=== PATIENT | male | born 1945 | race Caucasian/White ===

== ENCOUNTER 2016-10-26 19:07 | Emergency (ER) | payer MEDICARE, OTHER ==
[2016-10-26 19:17] VITALS: BP 125/79; PULSE 79; RESP 18; TEMP 98.7
--- NOTE | 2016-10-26 19:29 | ED ---
General Adult HPI - General Chief complaint: Extremity Injury, Upper Stated complaint: elbow injury Time Seen by Provider: 10/26/16 19:21 Source: patient, RN notes reviewed Mode of arrival: ambulatory Limitations: no limitations - History of Present Illness Initial comments: Patient is a 70-year-old male who presents emergency room today with chief complaint of injury to the right elbow that occurred approximately one hour ago. He does admit that he was riding in the back of a golf cart when a history of small bump in began to tip over he fell off landing on the right elbow causing hematoma. He does admit that he does have a large amount of swelling in this area. Does admit that he is on a blood thinner but denies any head injury or loss conscious. He denies any other complaints or associated symptoms. States she has full range of motion. Does admit some mild tenderness to the back of the right. Patient denies any recent fever, chills, shortness of breath, chest pain, back pain, abdominal pain, nausea or vomiting, numbness or tingling, dysuria or hematuria, constipation or diarrhea, headaches or visual changes, or any other complaints. - Related Data Home Medications Medication Instructions Recorded Confirmed Terbinafine HCl [LamISIL] 1 tab PO DAILY 10/26/16 10/26/16 Previous Rx's Medication Instructions Recorded Aspirin EC [Ecotrin Low Dose] 81 mg PO DAILY #30 tablet. 12/24/15 Atorvastatin Calcium [Lipitor] 40 mg PO HS #30 tab 12/24/15 Clopidogrel [Plavix] 75 mg PO DAILY #30 tab 12/24/15 Metoprolol Tartrate [Lopressor] 12.5 mg PO DAILY #60 tab 12/24/15 Nitroglycerin Sl Tabs [Nitrostat] 0.4 mg SUBLINGUAL Q5M PRN #25 tab 12/30/15 Allergies Allergy/AdvReac Type Severity Reaction Status Date / Time shellfish derived Allergy Anaphylaxis Verified 10/26/16 19:17 Review of Systems ROS Statement: Those systems with pertinent positive or pertinent negative responses have been documented in the HPI. ROS Other: All systems not noted in ROS Statement are negative. Past Medical History Past Medical History: Coronary Artery Disease (CAD), Myocardial Infarction ([place]) Additional Past Medical History / Comment(s): Couple days ago, blood pressure was elevated while at his family doctor's office, cervical pinched nerve with cervical pain that travels into bilateral arms at times, R ankle badly fractured and still has problems with it, sinus infections in past. History of Any Multi-Drug Resistant Organisms: None Reported Past Surgical History: Heart Catheterization With Stent Past Anesthesia/Blood Transfusion Reactions: Unable to Obtain Additional Past Anesthesia/Blood Transfusion Reaction / Comment(s): Pt has never had anesthesia or received blood. Past Psychological History: No Psychological Hx Reported Smoking Status: Former smoker Past Alcohol Use History: Occasional Past Drug Use History: None Reported - Past Family History Mother Family Medical History: No Reported History Additional Family Medical History / Comment(s): Mother is 93 yrs old and healthy. She lives alone and drives a car. Father History Unknown: Yes General Exam - General Exam Comments Initial Comments: General: The patient is awake and alert, in no distress, and does not appear acutely ill. Eye: Pupils are equal, round and reactive to light, extra-ocular movements are intact. No nystagmus. There is normal conjunctiva bilaterally. No signs of icterus. Ears, nose, mouth and throat: There are moist mucous membranes and no oral lesions. Neck: The neck is supple, there is no tenderness or JVD. Cardiovascular: There is a regular rate and rhythm. No murmur, rub or gallop is appreciated. Respiratory: Lungs are clear to auscultation, respirations are non-labored, breath sounds are equal. No wheezes, stridor, rales, or rhonchi. Musculoskeletal: She does have large hematoma to the back of the right elbow. Locally tender in this area. Shows full range of motion both flexion and extension. No tenderness to right shoulder, right wrist or hand. Sensations intact pulses equal bilaterally 2+. Neurological: A&O x 3. CN II-XII intact, There are no obvious motor or sensory deficits. Coordination appears grossly intact. Speech is normal. Skin: Skin is warm and dry and no rashes or lesions are noted. Psychiatric: Cooperative, appropriate mood & affect, normal judgment. Limitations: no limitations Course Vital Signs 10/26/16 19:15 Temperature 98.7 F Pulse Rate 79 Respiratory 18 Rate Blood Pressure 125/79 O2 Sat by Pulse 97 Oximetry Medical Decision Making - Medical Decision Making Patient's x-ray reviewed and shows no acute fracture dislocation. Results were discussed with the patient. Patient will be discharged home. Advised continue to ice elevate. Given Ti wrap to use for compression. Disposition Clinical Impression: Hematoma Disposition: HOME SELF-CARE Condition: Good Instructions: Hematoma (ED) Additional Instructions: Please continue to ice elevate the affected area at least 4 times a day for 20 minutes at a time. Please use Ti wrap for compression as discussed. Please follow-up with family doctor if symptoms persist or return here to the emergency room for any other concerns. Referrals: Dillan Mcmullen MD [Primary Care Provider] - 1-2 days Time of Disposition: 19:51
--- NOTE | 2016-10-26 19:45 | XR ---
EXAMINATION TYPE: XR elbow limited RT DATE OF EXAM: 10/26/2016 CLINICAL HISTORY: Posterior pain after fall injury today TECHNIQUE: 2 views of the right elbow are obtained. COMPARISON: None FINDINGS: There is no acute fracture/dislocation evident in the right elbow. No abnormal fat pad si gns are seen. There is prominent spur from the olecranon at distal triceps tendon attachment. Promin ent spurring from the medial epicondyle of the distal humerus is seen. The overlying soft tissue appe ars unremarkable. IMPRESSION: There is no acute fracture or dislocation in the right elbow.
== END 2016-10-26 19:57 | disposition home or self-care (01) ==
LOC: EC 19:07
DX: S50.01XA Contusion of right elbow, initial encounter (principal); Z87.891 Personal history of nicotine dependence; Z79.899 Other long term (current) drug therapy; Z91.013 Allergy to seafood; W17.89XA Other fall from one level to another, initial encounter; Y93.89 Activity, other specified
CPT/HCPCS: 99283

== ENCOUNTER → 2016-11-05 | Outpatient (CLI) | payer MEDICARE, OTHER ==
--- NOTE | 2016-11-05 11:31 | XR ---
EXAMINATION TYPE: XR elbow complete RT DATE OF EXAM: 11/05/2016 COMPARISON: 10/26/2016 HISTORY: 71-year-old male with elbow pain after fall TECHNIQUE: 3 views FINDINGS: No elbow joint effusion seen. There is diffuse soft tissue swelling with a large spur at the olecrano n. There is bony irregularity at the medial epicondyles stable from prior. Lesser degree of bony irre gularity at the lateral epicondyle. No acute fracture or dislocation seen. IMPRESSION: 1. Diffuse soft tissue swelling. Clinically correlate. 2. Findings suggest chronic tendinopathy of both common flexor and extensor tendon origins, possible epicondylitis. Correlate for any chronic pain. 3. No acute osseous abnormality seen. No appreciable elbow joint effusion.
--- NOTE | 2016-11-05 11:33 | US ---
EXAMINATION TYPE: US venous doppler duplex UE RT DATE OF EXAM: 11/05/2016 COMPARISON: NONE CLINICAL HISTORY: 71-year-old male R22.31 SWELLING RT ARM. TECHNIQUE: Grayscale, color doppler, spectral doppler imaging performed of the deep veins of the righ t upper extremity. Findings: Right Arm: Negative for DVT. There is normal flow, compressibility and vascular waveforms in the IJV , subclavian, axillary, brachial, cephalic, basilic, and paired radial and ulnar veins. IMPRESSION: No evidence for DVT within the right upper extremity.
== END ==
LOC: RADUSWWP 09:47
PROVIDERS: ATTEND Internal Medicine
DX: R22.31 Localized swelling, mass and lump, right upper limb (principal); M79.89 Other specified soft tissue disorders

== ENCOUNTER → 2018-12-08 | Outpatient (CLI) | payer MEDICARE ==
--- NOTE | 2018-12-08 09:40 | US ---
EXAMINATION TYPE: US liver DATE OF EXAM: 12/08/2018 COMPARISON: US gallbladder dated 12/22/2015 CLINICAL HISTORY: R74.8 Elevated Liver enzymes. EXAM MEASUREMENTS: Liver Length: 12.3 cm Gallbladder Wall: 0.2 cm CBD: 0.4 cm Right Kidney: 12.3 x 4.7 x 5.3 cm Pancreas: partially obscured by bowel gas, portions visualized wnl Liver: There is increased echogenicity of the hepatic parenchyma with diminished visualization of th e portal triads most commonly relating to hepatic steatosis and limiting evaluation for underlying he patic masses. Gallbladder: wnl Evidence for sonographic Cabrera's sign: no CBD: wnl Right Kidney: wnl, scattered echogenic foci could represent small stones or vascular calcifications IMPRESSION: 1. Sonographic findings most commonly related to hepatic steatosis. Correlate with liver function marlyn t results. 2. No sonographic sequela is no acute cholecystitis. 3. Partial obscuration of the pancreas by overlying bowel gas.
[2018-12-08 10:19] LABS: HCT 37.6 % (39.0-53.0); HGB 12.4 gm/dL (13.0-17.5); MCH 32.5 pg (25.0-35.0); MCV 98.6 fL (80.0-100.0); Mean Platelet Volume 6.6; Platelet Count 288 k/uL (150-450); RBC 3.82 m/uL (4.30-5.90); RDW 14.4 % (11.5-15.5); WBC 6.2 k/uL (3.8-10.6)
[2018-12-08 10:29] LABS: Albumin 3.7 g/dL (3.5-5.0); Bilirubin, Delta 0.2 mg/dL (0.0-0.2); Bilirubin,Unconjugated 0.4 mg/dL (0.0-1.1); INR 0.9 (<1.2); Prothrombin Time 10.2 sec (9.0-12.0); Total Bilirubin 0.6 mg/dL (0.2-1.3); Total Protein 6.7 g/dL (6.3-8.2)
[2018-12-09 10:29] LABS: Albumin 3.28 g/dL (3.80-4.90); Gamma Globulin 0.92 g/dL (0.70-1.50)
== END | disposition home or self-care (01) ==
LOC: RADUSWWP 08:47
PROVIDERS: ATTEND Physician Assistant
DX: R74.8 Abnormal levels of other serum enzymes (principal)
CPT/HCPCS: 36415; 76705; 80074; 80076; 82103; 82728; 83516; 83540; 83550; 84165; 85027; 85610; 86038

== ENCOUNTER → 2019-03-29 | Outpatient (CLI) | payer MEDICARE ==
[2019-03-29 17:24] LABS: African American GFR (CKD) 57.8 (60.0-200.0); Albumin 3.8 g/dL (3.80-4.90); Albumin/Globulin Ratio 1.81 (1.60-3.17); Anion Gap 6.9 mmol/L (4.00-12.00); BUN/Creat Ratio 17.14 Ratio (12.00-20.00); Calcium 9.2 mg/dL (8.7-10.3); Carbon Dioxide 27.1 mmol/L (21.6-31.8); Chol/HDL Ratio 3.13; Globulin 2.1 g/dL (1.6-3.3); LDL Cholesterol,Calculated 76.2 mg/dL (0.0-131.0); Non-African American GFR(CKD) 49.8 (60.0-200.0); Potassium 3.9 mmol/L (3.5-5.5); Total Bilirubin 0.4 mg/dL (0.3-1.2); Total Protein 5.9 g/dL (6.2-8.2); VLDL Calculation 23.8 mg/dL (5.00-40.00)
== END | disposition home or self-care (01) ==
LOC: LABWHC1 09:22
PROVIDERS: ATTEND Nurse Practitioner Adult Health
DX: I10 Essential (primary) hypertension (principal); E78.2 Mixed hyperlipidemia; R60.0 Localized edema
CPT/HCPCS: 36415; 80053; 80061

== ENCOUNTER → 2019-10-05 | Outpatient (CLI) | payer MEDICARE ==
[2019-10-05 17:03] LABS: African American GFR (CKD) 53.1 (60.0-200.0); Albumin 3.8 g/dL (3.80-4.90); Albumin/Globulin Ratio 1.73 (1.60-3.17); Anion Gap 7.6 mmol/L (4.00-12.00); BUN/Creat Ratio 19.33 Ratio (12.00-20.00); Calcium 8.5 mg/dL (8.7-10.3); Carbon Dioxide 24.4 mmol/L (21.6-31.8); Chol/HDL Ratio 3.57; Globulin 2.2 g/dL (1.6-3.3); LDL Cholesterol,Calculated 60.8 mg/dL (0.0-131.0); Non-African American GFR(CKD) 45.9 (60.0-200.0); Potassium 3.9 mmol/L (3.5-5.5); Total Bilirubin 0.5 mg/dL (0.3-1.2); VLDL Calculation 47.2 mg/dL (5.00-40.00)
== END | disposition home or self-care (01) ==
LOC: LABWHC1 08:23
PROVIDERS: ATTEND Nurse Practitioner Adult Health
DX: E78.2 Mixed hyperlipidemia (principal); I10 Essential (primary) hypertension
CPT/HCPCS: 36415; 80053; 80061

== ENCOUNTER 2019-11-07 18:29 | Observation (INO) | payer MEDICARE ==
[2019-11-07] MEDS ORDERED: SODIUM CHLORIDE 0.9% 500 ML 500 ML IV STA (19:00)
--- NOTE | 2019-11-07 19:18 | CT ---
EXAMINATION TYPE: CT brain lorena wo con DATE OF EXAM: 11/07/2019 COMPARISON: None HISTORY: Syncope and fall. CT DLP: 1380.9 mGycm Automated exposure control for dose reduction was used. Ventricles have normal size. There is no mass effect nor midline shift. There is no sign of intracran ial hemorrhage. Calvarium is intact. There is mild cerebral atrophy. Cervical vertebra have normal alignment. Disc spaces are fairly normal. There is calcification of the posterior longitudinal ligament at C4. Facet joints are intact. The skull base is intact. There is n ormal aeration of the temporal bones. IMPRESSION: Cerebral atrophy. No acute intracranial abnormality. Mild spondylotic changes in the cervical spine. No fracture.
--- NOTE | 2019-11-07 19:19 | ED ---
General Adult HPI - General Chief complaint: Fall Stated complaint: Fall Time Seen by Provider: 11/07/19 18:31 Source: patient, EMS, RN notes reviewed, old records reviewed Mode of arrival: EMS - History of Present Illness Initial comments: 74-year-old male presenting with syncopal episode. Patient was growing in the heat, he does admit to having one alcoholic beverage. He felt lightheaded, fell onto his backside. He does not think he had head trauma but he is complaining of some neck pain and low back pain. He has chronic low back pain at baseline. He denies any chest pain or palpitation. Denies vomiting or diarrhea. Denies fever. His only complaint at this point is low back pain. - Related Data Home Medications Medication Instructions Recorded Confirmed Terbinafine HCl [LamISIL] 1 tab PO DAILY 10/26/16 10/26/16 Previous Rx's Medication Instructions Recorded Aspirin EC [Ecotrin Low Dose] 81 mg PO DAILY #30 tablet. 12/24/15 Atorvastatin Calcium [Lipitor] 40 mg PO HS #30 tab 12/24/15 Clopidogrel [Plavix] 75 mg PO DAILY #30 tab 12/24/15 Metoprolol Tartrate [Lopressor] 12.5 mg PO DAILY #60 tab 12/24/15 Nitroglycerin Sl Tabs [Nitrostat] 0.4 mg SUBLINGUAL Q5M PRN #25 tab 12/30/15 Allergies Allergy/AdvReac Type Severity Reaction Status Date / Time shellfish derived Allergy Anaphylaxis Verified 11/07/19 18:41 Review of Systems ROS Statement: Those systems with pertinent positive or pertinent negative responses have been documented in the HPI. ROS Other: All systems not noted in ROS Statement are negative. Past Medical History Past Medical History: Coronary Artery Disease (CAD), Myocardial Infarction ([place]) Additional Past Medical History / Comment(s): Couple days ago, blood pressure was elevated while at his family doctor's office, cervical pinched nerve with cervical pain that travels into bilateral arms at times, R ankle badly fractured and still has problems with it, sinus infections in past. History of Any Multi-Drug Resistant Organisms: None Reported Past Surgical History: Heart Catheterization With Stent Past Anesthesia/Blood Transfusion Reactions: Unable to Obtain Additional Past Anesthesia/Blood Transfusion Reaction / Comment(s): Pt has never had anesthesia or received blood. Past Psychological History: No Psychological Hx Reported Past Alcohol Use History: Occasional Past Drug Use History: None Reported - Past Family History Mother Family Medical History: No Reported History Additional Family Medical History / Comment(s): Mother is 93 yrs old and healthy. She lives alone and drives a car. Father History Unknown: Yes General Exam General appearance: alert, in no apparent distress Head exam: Present: atraumatic, normocephalic Eye exam: Present: normal appearance, PERRL ENT exam: Present: mucous membranes dry Neck exam: Present: normal inspection. Absent: tenderness, meningismus Respiratory exam: Present: normal lung sounds bilaterally. Absent: respiratory distress, wheezes Cardiovascular Exam: Present: regular rate, normal rhythm GI/Abdominal exam: Present: soft. Absent: distended, tenderness, guarding Extremities exam: Present: normal inspection, normal capillary refill, other (Skin tear, right forearm, superficial, no repairable laceration) Back exam: Present: normal inspection, tenderness (lumbar) Neurological exam: Present: alert, oriented X3, CN II-XII intact. Absent: motor sensory deficit Psychiatric exam: Present: normal affect, normal mood Skin exam: Present: warm, dry. Absent: cyanosis, diaphoretic Course Vital Signs 11/07/19 11/07/19 18:34 20:15 Temperature 97.6 F Pulse Rate 72 97 Respiratory 20 18 Rate Blood Pressure 113/65 99/65 O2 Sat by Pulse 97 99 Oximetry - Reevaluation(s) Reevaluation #1: 11/07/19 19:16 Patient tetanus is up-to-date, he has a right forearm skin tear. EKG Findings - EKG Comments: EKG Findings:: EKG sinus rhythm with first-degree AV block, rate of 75, KS interval 214, QRS duration 78, QTC 417, no ST segment elevation. Medical Decision Making - Medical Decision Making 74-year-old male with syncope, fall. CT performed negative for scleral hemorrhage or mass effect, CT cervical spine negative for fracture or subluxation. Chest x-ray negative for acute Jesus Alberto pulmonary disease. X-ray of the lumbar spine is negative for fracture dislocation. Patient has hemoglobin 12.2, slightly anemic, no active bleeding, no melena or bright red rectal bleeding. Normal white blood cell count. His electrolytes do reveal significant acidosis with a CO2 of 10, he is in acute renal failure with a BUN of 57 and elevated serum creatinine. I suspect his acidosis is a combination of uremia as well as lactic acidosis with a lactic of 5.1 which is suspect is from dehydration rather than sepsis. He has been admitted for IV fluids. Case discussed with Dr. Peralta who will accept admission. - Lab Data Result diagrams: 11/07/19 19:24 11/07/19 19:24 Lab Results 11/07/19 11/07/19 11/07/19 Range/Units 19:24 19:24 19:24 WBC 7.2 (3.8-10.6) k/uL RBC 3.72 L (4.30-5.90) m/uL Hgb 12.2 L (13.0-17.5) gm/dL Hct 37.5 L (39.0-53.0) % MCV 100.8 H (80.0-100.0) fL MCH 32.9 (25.0-35.0) pg MCHC 32.7 (31.0-37.0) g/dL RDW 13.5 (11.5-15.5) % Plt Count 188 (150-450) k/uL Neutrophils % 73 % Lymphocytes % 17 % Monocytes % 5 % Eosinophils % 3 % Basophils % 1 % Neutrophils # 5.2 (1.3-7.7) k/uL Lymphocytes # 1.2 (1.0-4.8) k/uL Monocytes # 0.4 (0-1.0) k/uL Eosinophils # 0.2 (0-0.7) k/uL Basophils # 0.0 (0-0.2) k/uL Macrocytosis Slight PT 10.2 (9.0-12.0) sec INR 1.0 (<1.2) APTT 22.2 (22.0-30.0) sec Sodium 136 L (137-145) mmol/L Potassium 5.1 (3.5-5.1) mmol/L Chloride 115 H (98-107) mmol/L Carbon Dioxide 10 L (22-30) mmol/L Anion Gap 11 mmol/L BUN 57 H (9-20) mg/dL Creatinine 2.48 H (0.66-1.25) mg/dL Est GFR (CKD-EPI)AfAm 29 (>60 ml/min/1.73 sqM) Est GFR (CKD-EPI)NonAf 25 (>60 ml/min/1.73 sqM) Glucose 86 (74-99) mg/dL Plasma Lactic Acid Migue (0.7-2.0) mmol/L Calcium 8.6 (8.4-10.2) mg/dL Magnesium 2.5 H (1.6-2.3) mg/dL Total Bilirubin 0.8 (0.2-1.3) mg/dL AST 39 (17-59) U/L ALT 28 (4-49) U/L Alkaline Phosphatase 52 (38-126) U/L Total Protein 6.8 (6.3-8.2) g/dL Albumin 3.8 (3.5-5.0) g/dL Serum Alcohol 68 mg/dL 11/07/19 Range/Units 20:14 WBC (3.8-10.6) k/uL RBC (4.30-5.90) m/uL Hgb (13.0-17.5) gm/dL Hct (39.0-53.0) % MCV (80.0-100.0) fL MCH (25.0-35.0) pg MCHC (31.0-37.0) g/dL RDW (11.5-15.5) % Plt Count (150-450) k/uL Neutrophils % % Lymphocytes % % Monocytes % % Eosinophils % % Basophils % % Neutrophils # (1.3-7.7) k/uL Lymphocytes # (1.0-4.8) k/uL Monocytes # (0-1.0) k/uL Eosinophils # (0-0.7) k/uL Basophils # (0-0.2) k/uL Macrocytosis PT (9.0-12.0) sec INR (<1.2) APTT (22.0-30.0) sec Sodium (137-145) mmol/L Potassium (3.5-5.1) mmol/L Chloride (98-107) mmol/L Carbon Dioxide (22-30) mmol/L Anion Gap mmol/L BUN (9-20) mg/dL Creatinine (0.66-1.25) mg/dL Est GFR (CKD-EPI)AfAm (>60 ml/min/1.73 sqM) Est GFR (CKD-EPI)NonAf (>60 ml/min/1.73 sqM) Glucose (74-99) mg/dL Plasma Lactic Acid Migue 5.1 H* (0.7-2.0) mmol/L Calcium (8.4-10.2) mg/dL Magnesium (1.6-2.3) mg/dL Total Bilirubin (0.2-1.3) mg/dL AST (17-59) U/L ALT (4-49) U/L Alkaline Phosphatase (38-126) U/L Total Protein (6.3-8.2) g/dL Albumin (3.5-5.0) g/dL Serum Alcohol mg/dL Disposition Clinical Impression: Syncope, Fall, LUZ (acute kidney injury), Lactic acid acidosis, Dehydration Disposition: ADMITTED IP TO THIS [facility] Condition: Stable Is patient prescribed a controlled substance at d/c from ED?: No Referrals: Dillan Mcmullen MD [Primary Care Provider] - 1-2 days Decision to Admit Reason: Admit from EC Decision Date: 11/07/19 Decision Time: 20:48
[2019-11-07] MEDS ORDERED: MORPHINE SULFATE 4 MG/ML SYRINGE IVP STA (19:27)
[2019-11-07 19:34] LABS: Basophils % (A) 1 %; Eosinophils # (A) 0.2 k/uL (0-0.7); Eosinophils % (A) 3 %; HCT 37.5 % (39.0-53.0); HGB 12.2 gm/dL (13.0-17.5); Lymphocytes # (A) 1.2 k/uL (1.0-4.8); Lymphocytes % (A) 17 %; MCH 32.9 pg (25.0-35.0); MCHC 32.7 g/dL (31.0-37.0); MCV 100.8 fL (80.0-100.0); Macrocytosis Slight; Mean Platelet Volume 7.4; Monocytes # (A) 0.4 k/uL (0-1.0); Monocytes % (A) 5 %; Neutrophils # (A) 5.2 k/uL (1.3-7.7); Neutrophils % (A) 73 %; Platelet Count 188 k/uL (150-450); RBC 3.72 m/uL (4.30-5.90); RDW 13.5 % (11.5-15.5); WBC 7.2 k/uL (3.8-10.6)
[2019-11-07 19:42] LABS: Albumin 3.8 g/dL (3.5-5.0); Calcium 8.6 mg/dL (8.4-10.2); Magnesium 2.5 mg/dL (1.6-2.3); Total Bilirubin 0.8 mg/dL (0.2-1.3); Total Protein 6.8 g/dL (6.3-8.2)
[2019-11-07 19:50] LABS: Potassium 5.1 mmol/L (3.5-5.1)
[2019-11-07 19:52] LABS: Partial Thromboplastin Time 22.2 sec (22.0-30.0); Prothrombin Time 10.2 sec (9.0-12.0)
[2019-11-07] MEDS ORDERED: SODIUM CHLORIDE 0.9% 500 ML 500 ML IV ONE ×2 (20:04→20:39)
--- NOTE | 2019-11-07 20:41 | XR ---
EXAMINATION TYPE: XR chest 2V DATE OF EXAM: 11/07/2019 COMPARISON: 12/28/2015 HISTORY: Syncope TECHNIQUE: FINDINGS: Heart and mediastinum are normal. Lungs are clear. Diaphragm is normal. Bony thorax appears normal. IMPRESSION: Normal chest. No change.
[2019-11-07] MEDS ORDERED: ACETAMINOPHEN TAB 325 MG TAB PO PRN (20:46)
[2019-11-07] MEDS ORDERED: NALOXONE 0.4 MG/ML 1 ML VIAL IV PRN (20:46)
--- NOTE | 2019-11-07 20:57 | XR ---
EXAMINATION TYPE: XR lumbar spine 2 or 3V DATE OF EXAM: 11/07/2019 COMPARISON: 04/11/2014 HISTORY: Fall. Back pain TECHNIQUE: 3 views FINDINGS: Lumbar vertebra have fairly normal alignment. There is anterior spurring in the upper and l ower lumbar spine. Abdominal aorta is atheromatous. Posterior elements are intact. There is significa nt sclerotic hypertrophic facet arthropathy in the lower lumbar spine at L4-5 and L5-S1. Sacroiliac j oints are intact. IMPRESSION: Mild spondylotic changes. No fracture seen. No change compared to old exam.
[2019-11-07] MEDS: SODIUM CHLORIDE 0.9% 1,000 ML IV SCH (22:52)
[2019-11-07] MEDS ORDERED: KETOROLAC 30 MG/ML 1 ML VIAL IVP STA (22:53)
--- NOTE | 2019-11-07 23:19 | P.HPIM ---
History of Present Illness H&P Date: 11/07/19 Chief Complaint: syncope 74 year old male with heart disease, hypertension patient comes in after sustaining a fall due to syncope, he denies any head injury , he was grilling outside in the heat for long time, and has been active over the past few days where he did a lot of work around his house however, he claims that he drinks a lot of water and keeps hydrating. suddenly while grilling he felt himself falling and hit the ground with his back, he is not sure if he passed out. he denies any head injury , denies any associated SOB, chest pain , palpitations, dizziness, or light headedness, denies any nausea or vomiting. patient reports , that he had fallen in his chair couple times when he tried to stand up suddenly in the past. no recent changes in his medi cations. he denies any bleeding. he admits to daily cocktail of alcohol, and that he was having an alcoholic drink today that he did not even finish,. he feels fine right now, except for excruciating back pain . non radiating, 10/10 in seveerity , severe dull pain in his lower back. imaging in the ED did not show any acute pathology. blood work did reveal anemia, LUZ, acidosis , lactic acidosis Review of Systems Pertinent positives as noted in HPI. All other systems were reviewed and are negative Past Medical History Past Medical History: Coronary Artery Disease (CAD), Myocardial Infarction ([place]) History of Any Multi-Drug Resistant Organisms: None Reported Past Surgical History: Heart Catheterization With Stent Past Anesthesia/Blood Transfusion Reactions: Unable to Obtain Additional Past Anesthesia/Blood Transfusion Reaction / Comment(s): Pt has never had anesthesia or received blood. Past Psychological History: No Psychological Hx Reported Past Alcohol Use History: Occasional Past Drug Use History: None Reported - Past Family History Mother Family Medical History: No Reported History Additional Family Medical History / Comment(s): Mother is 93 yrs old and healthy. She lives alone and drives a car. Father History Unknown: Yes Medications and Allergies Home Medications Medication Instructions Recorded Confirmed Type Aspirin EC [Ecotrin Low Dose] 81 mg PO DAILY #30 tablet. 12/24/15 11/07/19 Rx Atorvastatin [Lipitor] 20 mg PO DAILY 11/07/19 11/07/19 History Losartan Potassium [Cozaar] 50 mg PO DAILY 11/07/19 11/07/19 History Metoprolol Tartrate [Lopressor] 12.5 mg PO BID 11/07/19 11/07/19 History Spironolactone [Aldactone] 25 mg PO DAILY 11/07/19 11/07/19 History hydrALAZINE HCL [Apresoline] 50 mg PO BID-W/MEALS 11/07/19 11/07/19 History lisinopriL [Zestril] 11/07/19 History Allergies Allergy/AdvReac Type Severity Reaction Status Date / Time shellfish derived Allergy Anaphylaxis Verified 11/07/19 21:06 Physical Exam Vitals: Vital Signs Temp Pulse Resp BP Pulse Ox 11/07/19 21:00 80 18 119/74 98 11/07/19 20:30 99/65 11/07/19 20:15 97 18 99/65 99 11/07/19 20:00 77 16 125/77 99 11/07/19 19:30 100/67 99 11/07/19 19:00 113/65 11/07/19 18:37 88 18 96 11/07/19 18:34 97.6 F 72 20 113/65 97 Intake and Output 11/07/19 11/07/19 11/07/19 06:59 14:59 22:59 Other: Weight 106.141 kg Constitutional: No acute distress, conversant, pleasant Eyes: Anicteric sclerae, moist conjunctiva, Pupils equal round reactive to light ENMT: NC/AT Oropharynx clear, no erythema, or exudates Neck: Supple, FROM, no masses, or JVD No carotid bruits No thyromegaly Lungs: Clear to auscultation Clear to percussion Normal respiratory effort, no accessory muscle use Cardiovascular: Heart regular in rate and rhythm, No murmurs, gallops, or rubs No peripheral edema Abdominal: Soft Nontender, no guarding, rebound or rigidity Abdomen moving with respiration Normoactive bowel sounds No hepatomegaly, No splenomegaly No palpable mass No abdominal wall hernia noted Skin: Normal temperature, tone, texture, turgor No induration No subcutaneous nodules No rash, lesions No ulcers Extremities: Lumbar Paraspinal muscle spasm No point tenderness over the back no skin changes no swelling No digital cyanosis No clubbing Pedal pulses intact and symmetrical Radial pulses intact and symmetrical No calf tenderness Psychiatric: Alert and oriented to person, place and time Appropriate affect fair judgement Neuro Muscles Strength 5/5 in all 4 extremities Sensation to light touch grossly present throughout Cranial nerves II-XII grossly intact No focal sensory deficits Lymphatics: no palpable cervical or supraclavicular , or inguinal lymph nodes Results CBC & Chem 7: 11/07/19 19:24 11/07/19 19:24 Labs: Abnormal Lab Results - Last 24 Hours (Table) 11/07/19 11/07/19 11/07/19 Range/Units 19:24 19:24 20:14 RBC 3.72 L (4.30-5.90) m/uL Hgb 12.2 L (13.0-17.5) gm/dL Hct 37.5 L (39.0-53.0) % MCV 100.8 H (80.0-100.0) fL Sodium 136 L (137-145) mmol/L Chloride 115 H (98-107) mmol/L Carbon Dioxide 10 L (22-30) mmol/L BUN 57 H (9-20) mg/dL Creatinine 2.48 H (0.66-1.25) mg/dL Plasma Lactic Acid Migue 5.1 H* (0.7-2.0) mmol/L Magnesium 2.5 H (1.6-2.3) mg/dL Assessment and Plan Assessment: Syncope LUZ Lactic acidosis Most likely all above secondary to dehydration IV fluid hydration with normal saline Follow-up labs Follow-up renal function Monitor urine output Cardiac monitoring EKG no acute ST changes, no arrhythmia Lumbar Paraspinal muscle spasm secondary to fall, pain control and muscle relaxants Chronic conditions Hypertension resume home meds with hold parameters Continue aspirin and statin CODE STATUS:FULL CODE DVT prophylaxis: heparin sc tid Discussed with: Patient, ER, RN Anticipated length of stay < than [address]: home A total of 75 minutes was spent on the care of this complex patient more than 50% of the time was spent in counseling and care coordination.
[2019-11-08] MEDS ORDERED: KETOROLAC 30 MG/ML 1 ML VIAL IVP SCH
[2019-11-08 02:01] LABS: Appearance,Urine Cloudy (Clear); Bacteria,Urine Rare /hpf; Bilirubin,Urine Negative (Negative); Blood,Urine Moderate (Negative); Color,Urine Light Red; Glucose,Urine (UA) Negative (Negative); Hyaline Casts,Urine 24 /lpf (0-2); Ketones,Urine Negative (Negative); Leukocyte Esterase,Urine Small (Negative); Mucus,Urine Rare /hpf; Nitrite,Urine Negative (Negative); PH, Urine 5.5 (5.0-8.0); Protein,Urine 1+ (Negative); RBC,Urine >182 /hpf (0-5); Specific Gravity,Urine 1.013 (1.001-1.035); Urobilinogen,Urine <2.0 mg/dL (<2.0); WBC,Urine 45 /hpf (0-5)
[2019-11-08] MEDS ORDERED: MORPHINE SULFATE 4 MG/ML SYRINGE IVP PRN (02:27)
[2019-11-08] MEDS: PANTOPRAZOLE 40 MG TABLET PO SCH ×2 (06:56→10:18)
[2019-11-08] MEDS ORDERED: ASPIRIN 81 MG PO SCH ×2 (09:00→21:00)
[2019-11-08 10:17] LABS: Basophils % (A) 1 %; Eosinophils # (A) 0.2 k/uL (0-0.7); Eosinophils % (A) 3 %; HCT 33.5 % (39.0-53.0); HGB 10.7 gm/dL (13.0-17.5); Lymphocytes # (A) 1.7 k/uL (1.0-4.8); Lymphocytes % (A) 29 %; MCHC 32.1 g/dL (31.0-37.0); MCV 102.9 fL (80.0-100.0); Macrocytosis Slight; Mean Platelet Volume 7.5; Monocytes # (A) 0.4 k/uL (0-1.0); Monocytes % (A) 6 %; Neutrophils # (A) 3.4 k/uL (1.3-7.7); Neutrophils % (A) 58 %; Platelet Count 157 k/uL (150-450); RBC 3.26 m/uL (4.30-5.90); RDW 13.5 % (11.5-15.5)
[2019-11-08] MEDS: METOPROLOL TARTRATE 12.5 MG TAB PO SCH ×2 (10:18→20:08)
[2019-11-08] MEDS: hydrALAZINE HCL 50 MG TAB PO SCH ×2 (10:18→17:16)
[2019-11-08] MEDS: ATORVASTATIN 20 MG TAB PO SCH (10:18)
[2019-11-08 10:39] LABS: Calcium 7.8 mg/dL (8.4-10.2); Potassium 4.7 mmol/L (3.5-5.1)
[2019-11-08] MEDS: SODIUM CHLORIDE 0.9% 1,000 ML IV SCH ×2 (11:12→17:04)
--- NOTE | 2019-11-08 12:40 | ECHOF ---
Referral Reason:syncope MEASUREMENTS -------- HEIGHT: 195.6 cm WEIGHT: 106.1 kg BP: 114/70 RVIDd: 3.3 cm (< 3.3) IVSd: 1.4 cm (0.6 - 1.1) LVIDd: 5.1 cm (3.9 - 5.3) LVPWd: 1.4 cm (0.6 - 1.1) IVSs: 1.8 cm LVIDs: 3.2 cm LVPWs: 1.5 cm LA Diam: 3.6 cm (2.7 - 3.8) LAESV Index (A-L): 24.10 ml/m Ao Diam: 3.6 cm (2.0 - 3.7) MV EXCURSION: 16.432 mm (> 18.000) MV EF SLOPE: 65 mm/s (70 - 150) EPSS: 0.7 cm MV E Sidney: 0.70 m/s MV DecT: 278 ms MV A Sidney: 0.75 m/s MV E/A Ratio: 0.93 RAP: 5.00 mmHg RVSP: 18.87 mmHg FINDINGS -------- Sinus rhythm. This was a technically adequate study. The left ventricular size is normal. There is moderate concentric left ventricular hypertrophy. T here is normal global left ventricular contractility. Overall left ventricular systolic function is normal with, an EF between 55 - 60 %. The right ventricle is mildly enlarged. Normal LA size by volume 22+/-6 ml/m2. The right atrium is normal in size. Interatrial and interventricular septum intact. There is mild aortic valve sclerosis. Trace to mild aortic regurgitation. The mitral valve is normal. Mild tricuspid regurgitation present. The pulmonic valve was not well visualized. The aortic root size is normal. There is no pericardial effusion. CONCLUSIONS -------- 1. The left ventricular size is normal. 2. There is moderate concentric left ventricular hypertrophy. 3. There is normal global left ventricular contractility. 4. Overall left ventricular systolic function is normal with, an EF between 55 - 60 %. 5. The right ventricle is mildly enlarged. 6. Normal LA size by volume 22+/-6 ml/m2. 7. There is mild aortic valve sclerosis. 8. Trace to mild aortic regurgitation. 9. The mitral valve is normal. 10. The aortic root size is normal. 11. There is no pericardial effusion. RAISER HELPER: MINOR Roth
--- NOTE | 2019-11-08 14:43 | P.PN ---
Subjective Progress Note Date: 11/08/19 The patient is a 74-year-old male with a PMH of coronary artery disease, hypertension, and hyperlipidemia who had presented to the ED after an episode of syncope and fall. The patient was seen and evaluated at the bedside on 11/07. He reported feeling back to his baseline. He endorsed continued lower back pain, currently at a 4 out of 10. Denied weakness, numbness, or tingling. He denied chest pain, shortness of breath, palpitations, nausea, vomiting, dizziness. Orthostatic hypotension testing was unremarkable. Objective - Vital Signs Vital signs: Vital Signs Temp 97 F L 11/08/19 11:33 Pulse 84 11/08/19 11:33 Resp 16 11/08/19 11:33 BP 112/68 11/08/19 11:33 Pulse Ox 96 11/08/19 11:33 Intake & Output 11/07/19 11/08/19 11/08/19 18:59 06:59 18:59 Intake Total 840 Output Total 950 1250 Balance -950 -410 Weight 106.141 kg 100.3 kg Intake: Intake, IV Titration 600 Amount Sodium Chloride 0.9% 1, 600 000 ml @ 150 mls/hr IV . Q6H40M [facility] Rx#:[id number] Oral 240 Output: Urine 950 1250 Other: Voiding Method Urinal - Exam General: Non-toxic, in no acute distress, appears stated age, overweight HEENT: NC/AT, anicteric sclerae, moist conjunctiva, no lid-lag, PERRLA Cardiovascular: S1/S2 wnl, no murmurs, rubs, or gallops Lungs: Clear to auscultation, normal respiratory effort, no accessory muscle use Abdominal: Soft, non-tender, non-distended, no guarding, rebound, or rigidity Skin: Warm, dry Extremities: No edema or contractures, no lower back tenderness noted Psychiatric: Alert and oriented to person, place and time, appropriate affect Neuro: CN II-XII grossly intact, Strength 5/5 in all 4 extremities, Speech intact, Sensation to light touch grossly intact throughout - Labs CBC & Chem 7: 11/08/19 09:50 11/08/19 09:50 Labs: Abnormal Lab Results - Last 24 Hours (Table) 07/26/20 07/26/20 07/26/20 Range/Units 19:24 19:24 20:14 RBC 3.72 L (4.30-5.90) m/uL Hgb 12.2 L (13.0-17.5) gm/dL Hct 37.5 L (39.0-53.0) % MCV 100.8 H (80.0-100.0) fL Sodium 136 L (137-145) mmol/L Chloride 115 H (98-107) mmol/L Carbon Dioxide 10 L (22-30) mmol/L BUN 57 H (9-20) mg/dL Creatinine 2.48 H (0.66-1.25) mg/dL Glucose (74-99) mg/dL Plasma Lactic Acid Migue 5.1 H* (0.7-2.0) mmol/L Calcium (8.4-10.2) mg/dL Magnesium 2.5 H (1.6-2.3) mg/dL Urine Protein (Negative) Urine Blood (Negative) Ur Leukocyte Esterase (Negative) Urine RBC (0-5) /hpf Urine WBC (0-5) /hpf Urine Bacteria (None) /hpf Hyaline Casts (0-2) /lpf Urine Mucus (None) /hpf 11/07/19 11/08/19 11/08/19 Range/Units 23:22 01:26 09:50 RBC 3.26 L (4.30-5.90) m/uL Hgb 10.7 L (13.0-17.5) gm/dL Hct 33.5 L (39.0-53.0) % MCV 102.9 H (80.0-100.0) fL Sodium (137-145) mmol/L Chloride (98-107) mmol/L Carbon Dioxide (22-30) mmol/L BUN (9-20) mg/dL Creatinine (0.66-1.25) mg/dL Glucose (74-99) mg/dL Plasma Lactic Acid Migue 2.8 H* (0.7-2.0) mmol/L Calcium (8.4-10.2) mg/dL Magnesium (1.6-2.3) mg/dL Urine Protein 1+ H (Negative) Urine Blood Moderate H (Negative) Ur Leukocyte Esterase Small H (Negative) Urine RBC >182 H (0-5) /hpf Urine WBC 45 H (0-5) /hpf Urine Bacteria Rare H (None) /hpf Hyaline Casts 24 H (0-2) /lpf Urine Mucus Rare H (None) /hpf 11/08/19 Range/Units 09:50 RBC (4.30-5.90) m/uL Hgb (13.0-17.5) gm/dL Hct (39.0-53.0) % MCV (80.0-100.0) fL Sodium 136 L (137-145) mmol/L Chloride 115 H (98-107) mmol/L Carbon Dioxide 14 L (22-30) mmol/L BUN 49 H (9-20) mg/dL Creatinine 1.99 H (0.66-1.25) mg/dL Glucose 107 H (74-99) mg/dL Plasma Lactic Acid Migue (0.7-2.0) mmol/L Calcium 7.8 L (8.4-10.2) mg/dL Magnesium (1.6-2.3) mg/dL Urine Protein (Negative) Urine Blood (Negative) Ur Leukocyte Esterase (Negative) Urine RBC (0-5) /hpf Urine WBC (0-5) /hpf Urine Bacteria (None) /hpf Hyaline Casts (0-2) /lpf Urine Mucus (None) /hpf Assessment and Plan Plan: Syncope, likely secondary to dehydration -Continue with 24 hours of cardiac monitoring in setting of history of coronary artery disease with stenting -Fall precautions -Echocardiogram ordered Lower back pain, likely muscle spasm -Continue with pain control with muscle relaxants Acute kidney injury, improved -Monitor BMP Lactic acidosis -Resolved Macrocytic anemia -Check B12 and folate levels DVT prophylaxis -Heparin subq Discussed with: patient Anticipated discharge date: 1-[address]: home A total of 25 minutes was spent on the care of this complex patient more than 50% of the time was spent in counseling and care coordination.
[2019-11-08 15:11] LABS: Reticulocyte % 1.1 % (0.5-2.0)
[2019-11-08] MEDS: HEPARIN SODIUM,PORCINE 5,000 UNIT/ML 1 ML VIAL SQ SCH ×2 (17:17→23:38)
[2019-11-09 03:55] LABS: Folate, Serum >24.0 ng/mL
[2019-11-09] MEDS: PANTOPRAZOLE 40 MG TABLET PO SCH (06:52)
[2019-11-09] MEDS: hydrALAZINE HCL 50 MG TAB PO SCH (06:54)
[2019-11-09 08:14] VITALS: BP 112/67; PULSE 99; RESP 18; TEMP 96.7
[2019-11-09] MEDS: ATORVASTATIN 20 MG TAB PO SCH (08:19)
[2019-11-09] MEDS: METOPROLOL TARTRATE 12.5 MG TAB PO SCH (08:19)
[2019-11-09] MEDS: HEPARIN SODIUM,PORCINE 5,000 UNIT/ML 1 ML VIAL SQ SCH (08:19)
[2019-11-09 09:16] LABS: HCT 33.6 % (39.0-53.0); HGB 10.9 gm/dL (13.0-17.5); MCHC 32.5 g/dL (31.0-37.0); MCV 101.8 fL (80.0-100.0); Macrocytosis Slight; Mean Platelet Volume 8.5; Platelet Count 142 k/uL (150-450); RDW 13.3 % (11.5-15.5); WBC 6.4 k/uL (3.8-10.6)
[2019-11-09 09:33] LABS: Calcium 8.5 mg/dL (8.4-10.2); Potassium 4.6 mmol/L (3.5-5.1)
--- NOTE | 2019-11-09 11:57 | P.NPCON ---
History of Present Illness - Reason for Consult acute renal failure - History of Present Illness Reason for consultation: Acute kidney injury History of present illness: Patient is a 74-year-old male seen in consultation for acute kidney injury. Creatinine was 2.48 on admission and is down to 1.35 today. He has received IV hydration during this admission. He presented to the hospital due to syncopal episode. Patient states he was barbecuing outdoors and suddenly collapsed. He doesn't recall much of the episode. Patient states his found him down and subsequently brought him to the hospital. He is currently awake and alert. Denies chest pain or shortness of breath. No vomiting or diarrhea. No edema. Good urine output. From prior records it appears patient does have chronic kidney disease stage III. Baseline creatinine near 1.2-1.4. Blood pressure is little bit on the lower side. He is maintained on metoprolol as well as hydralazine. Orthostatic vitals were reviewed. No history of diabetes. Denies family history of renal disease. Vital signs are stable. General: The patient appeared well nourished and normally developed. HEENT: Head exam is unremarkable. Neck is without jugular venous distension. LUNGS: Lungs are clear to auscultation and percussion. Breath sounds decreased. HEART: Rate and Rhythm are regular. ABDOMEN: Soft, nontender. EXTREMITITES: No clubbing, cyanosis, or edema. Past Medical History Past Medical History: Coronary Artery Disease (CAD), Myocardial Infarction ([place]) Additional Past Medical History / Comment(s): Couple days ago, blood pressure was elevated while at his family doctor's office, cervical pinched nerve with cervical pain that travels into bilateral arms at times, R ankle badly fractured and still has problems with it, sinus infections in past. Last Myocardial Infarction Date:: 2015 History of Any Multi-Drug Resistant Organisms: None Reported Past Surgical History: Heart Catheterization With Stent Past Anesthesia/Blood Transfusion Reactions: Unable to Obtain Additional Past Anesthesia/Blood Transfusion Reaction / Comment(s): Pt has never had anesthesia or received blood. Date of Last Stent Placement:: 2015 Past Psychological History: No Psychological Hx Reported Additional Psychological History / Comment(s): They have been for 50yrs. Pt is independent. Smoking Status: Light tobacco smoker Past Alcohol Use History: Occasional Additional Past Alcohol Use History / Comment(s): Pt smokes a pipe on and off thruout each day. He started smoking when he was in his 20's. Past Drug Use History: None Reported - Past Family History Mother Family Medical History: No Reported History Additional Family Medical History / Comment(s): Mother is 96 yrs old and healthy. She lives alone and drives a car. Father History Unknown: Yes Medications and Allergies Home Medications Medication Instructions Recorded Confirmed Type Aspirin EC [Ecotrin Low Dose] 81 mg PO DAILY #30 tablet. 12/24/15 11/07/19 Rx Atorvastatin [Lipitor] 20 mg PO DAILY 11/07/19 11/07/19 History Metoprolol Tartrate [Lopressor] 12.5 mg PO BID 11/07/19 11/07/19 History hydrALAZINE HCL [Apresoline] 50 mg PO BID-W/MEALS 11/07/19 11/07/19 History Allergies Allergy/AdvReac Type Severity Reaction Status Date / Time shellfish derived Allergy Anaphylaxis Verified 11/07/19 21:06 Physical Exam Vitals: Vital Signs Temp Pulse Resp BP BP Pulse Ox 11/09/19 08:00 96.7 F L 99 18 112/67 94 L 11/09/19 04:00 97.8 F 72 16 110/69 97 11/08/19 23:24 98.3 F 79 16 126/73 95 11/08/19 20:00 16 11/08/19 19:58 97.8 F 84 16 126/74 97 11/08/19 16:00 97.1 F L 80 18 110/60 97 Intake and Output 11/08/19 11/09/19 11/09/19 22:59 06:59 14:59 Intake Total 240 300 300 Balance 240 300 300 Intake: Oral 240 300 300 Other: Voiding Method Urinal Urinal Weight 100 kg Results - Lab Results Most recent lab results Calcium 8.5 mg/dL (8.4-10.2) 11/09/19 08:55 Magnesium 2.5 mg/dL (1.6-2.3) H 11/07/19 19:24 11/09/19 08:55 11/09/19 08:55 Assessment and Plan Plan: Assessment: 1. Acute kidney injury mostly prerenal secondary to hypotension/hypovolemia. Creatinine was 2.48 on admission and is 1.35 today. 2. Chronic kidney disease stage III with baseline creatinine in the range of 1.2-1.4 secondary to nephrosclerosis. 3. Syncopal episode due to hypotension/hypovolemia as well as antihypertensives. Blood pressure on the lower side. 4. Metabolic acidosis secondary to acute kidney injury and IV fluids. Plan: IV fluids have been discontinued. Add oral sodium bicarbonate. Discontinue hydralazine. Avoid nephrotoxins. Stable to be discharged from nephrology standpoint. Follow up outpatient in 1-2 weeks. Thank you for the consultation. I will continue to follow the patient with you during his hospital stay.
--- NOTE | 2019-11-09 18:20 | P.DS ---
Providers Date of admission: 11/07/19 20:46 Expected date of discharge: 11/09/19 Attending physician: Waqar Ibarra MD Primary care physician: Dillan [facility] Hospital Course: The patient is a 74-year-old male with a PMH of coronary artery disease, hypertension, and hyperlipidemia who had presented to the ED after an episode of syncope and fall. The patient reported that he had been working more so than usual in his yard and was standing at a grill when he suddenly became lightheaded and fell to the ground. He denied prodromal chest discomfort, palpitations, nausea, or diaphoresis. Denied tongue biting, shaking, urinary or bladder incontinence, postictal confusion. Patient feels that he immediately regained consciousness and may not have even fully lost consciousness to begin with. He fell on his back and had reported lower back pain upon presentation to the emergency room. A lumbar spine x-ray and had/cervical spine CT were unremarkable. Laboratory evaluation had revealed acute kidney injury with lactic acidosis. He was admitted with suspected dehydration and an echocardiogram revealed normal LV EF and mild aortic valve sclerosis and mild aortic regurgitation. EKG had revealed a sinus rhythm at 75 bpm with first- degree AV block no other abnormalities. Cardiac monitoring was unremarkable. The patient was seen and evaluated at the day of discharge at the bedside. He reported that his lower back pain had improved significantly. Denied weakness, numbness, or tingling. Denied urinary or bowel complaints. The patient's kidney function improved significantly with IV fluids. Nephrology was also consulted who recommended continuing to hold his antihypertensives. The patient's antihypertensives and losartan and spironolactone were both held and the patient was told to discontinue them following discharge. The patient was advised to follow-up with his primary care provider along with his dramatic coach in the next 1-2 days following discharge. The patient further denied any additional episodes of dizziness or near syncope. Denied chest pain, shortness of breath, headache, or visual disturbances. Physical Examination General: Non-toxic, in no acute distress, appears stated age, normal weight HEENT: NC/AT, anicteric sclerae, moist conjunctiva, no lid-lag, PERRLA Cardiovascular: S1/S2 wnl, no murmurs, rubs, or gallops Lungs: Clear to auscultation, normal respiratory effort, no accessory muscle use Abdominal: Soft, non-tender, non-distended, no guarding, rebound, or rigidity Skin: Warm, dry Extremities: No edema or contractures Psychiatric: Alert and oriented to person, place and time, appropriate affect Neuro: CN II-XII grossly intact, Strength 5/5 in all 4 extremities, Speech intact, Sensation to light touch grossly intact throughout Discharge diagnosis: Syncope, dehydration, acute kidney injury, lactic acidosis A total of 35 minutes of time were spent preparing this complex discharge summary. Patient Condition at Discharge: Stable Plan - Discharge Summary Discharge Rx Participant: No New Discharge Prescriptions: Continue Aspirin EC [Ecotrin Low Dose] 81 mg PO DAILY #30 tablet. Metoprolol Tartrate [Lopressor] 12.5 mg PO BID hydrALAZINE HCL [Apresoline] 50 mg PO BID-W/MEALS Atorvastatin [Lipitor] 20 mg PO DAILY Discontinued Spironolactone [Aldactone] 25 mg PO DAILY Losartan Potassium [Cozaar] 50 mg PO DAILY Discharge Medication List Aspirin EC [Ecotrin Low Dose] 81 mg PO DAILY #30 tablet. 12/24/15 [Rx] Atorvastatin [Lipitor] 20 mg PO DAILY 11/07/19 [History] Metoprolol Tartrate [Lopressor] 12.5 mg PO BID 11/07/19 [History] hydrALAZINE HCL [Apresoline] 50 mg PO BID-W/MEALS 11/07/19 [History] Follow up Appointment(s)/Referral(s): Jones Garcias MD [STAFF PHYSICIAN] - 11/18/19 9:15 am Dillan Mcmullen MD [Primary Care Provider] - 11/15/19 2:45 pm Orestes Meraz DO [STAFF PHYSICIAN] - 2 Weeks (Dr Meraz will make f/u appointment. Call office Friday to confirm appointment time.) Patient Instructions/Handouts: Dehydration (DC), Acute Kidney Injury (DC), Syncope (DC) Activity/Diet/Wound Care/Special Instructions: Continue to hold Losartan and Spironolactone until follow up with Dr Mcmullen Hold Hydralazine until follow up with Dr Meraz Discharge Disposition: HOME SELF-CARE
[2019-11-10] MEDS ORDERED: SODIUM BICARBONATE TAB 650 MG TAB PO SCH (09:00)
== END 2019-11-09 12:02 | disposition home or self-care (01) ==
LOC: EC 18:29 → 3SCARD 20:46 → INTOOBSV 20:46 → 3SCARD 11-08 07:34 → UNDODISIN 11-09 12:02
PROVIDERS: ADMIT Internal Medicine; ATTEND Internal Medicine
DX: N17.9 Acute kidney failure, unspecified (principal); E87.2 Acidosis; E86.0 Dehydration; N18.3 Chronic kidney disease, stage 3 (moderate); I95.9 Hypotension, unspecified; D53.9 Nutritional anemia, unspecified; E78.5 Hyperlipidemia, unspecified; E86.1 Hypovolemia; F17.200 Nicotine dependence, unspecified, uncomplicated; G89.29 Other chronic pain; I12.9 Hypertensive chronic kidney disease with stage 1 through stage 4 chronic kidney disease, or unspecified chronic kidney disease; I25.10 Atherosclerotic heart disease of native coronary artery without angina pectoris; I25.2 Old myocardial infarction; I44.0 Atrioventricular block, first degree; M62.830 Muscle spasm of back; R55 Syncope and collapse; Z79.02 Long term (current) use of antithrombotics/antiplatelets; Z79.82 Long term (current) use of aspirin; Z79.899 Other long term (current) drug therapy; Z91.013 Allergy to seafood; Z95.5 Presence of coronary angioplasty implant and graft; W19.XXXA Unspecified fall, initial encounter; Z03.818 Encounter for observation for suspected exposure to other biological agents ruled out
CPT/HCPCS: 96376; 96361 ×3; 96372 ×2; 96374; 96375; 99285; 36415; 93005; 93306; 80053; 80048 ×2; 82607; 82746; 83605 ×2; 83735; 85025 ×2; 85027; 85610; 85045; 85730; 81001; 72100; 71046; 72125; 70450; G0378 ×3; G0480; U0003; J2270 ×2; J1644 ×2; J1885; 80320

== ENCOUNTER 2020-04-06 02:33 | Emergency (ER) | payer OTHER, MEDICARE ==
[2020-04-06 02:50] VITALS: BP 175/104; PULSE 95; RESP 18; TEMP 97.7
[2020-04-06 03:14] LABS: Color,Urine Red
[2020-04-06 03:15] LABS: Appearance,Urine Bloody (Clear)
[2020-04-06 03:18] LABS: Mucus,Urine Many /hpf; RBC,Urine >182 /hpf (0-5); WBC,Urine >182 /hpf (0-5)
--- NOTE | 2020-04-06 03:26 | ED ---
Male Urogenital HPI - General Chief complaint: Urogenital Stated complaint: Urinating blood Time Seen by Provider: 04/06/20 02:53 Source: patient, RN notes reviewed, old records reviewed Mode of arrival: wheelchair Limitations: no limitations - History of Present Illness Initial comments: This is a 74-year-old male DF for evaluation patient has significant hematuria, no other issues noted. Abdominal pain. No nausea vomiting or diarrhea no blood thinners. Patient has no prior history of urinary retention. No known significant prostate history MD Complaint: dysuria, other (hematuria) -: days(s) Location: penis, abdomen Radiation: none Severity: moderate Severity scale (1-10): 4 Consistency: constant Improves with: none Worsens with: none indwelling catheter (now placed) Reports: denies other symptoms - Related Data Home Medications Medication Instructions Recorded Confirmed Atorvastatin [Lipitor] 20 mg PO DAILY 11/07/19 11/07/19 Metoprolol Tartrate [Lopressor] 12.5 mg PO BID 11/07/19 11/07/19 hydrALAZINE HCL [Apresoline] 50 mg PO BID-W/MEALS 11/07/19 11/07/19 Previous Rx's Medication Instructions Recorded Aspirin EC [Ecotrin Low Dose] 81 mg PO DAILY #30 tablet. 12/24/15 Ciprofloxacin HCl [Cipro] 500 mg PO Q12HR #20 tablet 04/06/20 Allergies Allergy/AdvReac Type Severity Reaction Status Date / Time shellfish derived Allergy Anaphylaxis Verified 04/08/20 15:34 Review of Systems ROS Statement: Those systems with pertinent positive or pertinent negative responses have been documented in the HPI. ROS Other: All systems not noted in ROS Statement are negative. Past Medical History Past Medical History: Coronary Artery Disease (CAD), Myocardial Infarction ([place]) Additional Past Medical History / Comment(s): Couple days ago, blood pressure was elevated while at his family doctor's office, cervical pinched nerve with cervical pain that travels into bilateral arms at times, R ankle badly fractured and still has problems with it, sinus infections in past. Last Myocardial Infarction Date:: 2015 History of Any Multi-Drug Resistant Organisms: None Reported Past Surgical History: Heart Catheterization With Stent Past Anesthesia/Blood Transfusion Reactions: Unable to Obtain Additional Past Anesthesia/Blood Transfusion Reaction / Comment(s): Pt has never had anesthesia or received blood. Date of Last Stent Placement:: 2015 Past Psychological History: No Psychological Hx Reported Smoking Status: Light tobacco smoker Past Alcohol Use History: Occasional Past Drug Use History: None Reported - Past Family History Mother Family Medical History: No Reported History Additional Family Medical History / Comment(s): Mother is 96 yrs old and healthy. She lives alone and drives a car. Father History Unknown: Yes General Exam Limitations: no limitations General appearance: alert, in no apparent distress Head exam: Present: atraumatic, normocephalic, normal inspection Eye exam: Present: normal appearance, PERRL, EOMI. Absent: scleral icterus, conjunctival injection, periorbital swelling ENT exam: Present: normal exam, mucous membranes moist Neck exam: Present: normal inspection. Absent: tenderness, meningismus, lymphadenopathy Respiratory exam: Present: normal lung sounds bilaterally. Absent: respiratory distress, wheezes, rales, rhonchi, stridor Cardiovascular Exam: Present: regular rate, normal rhythm, normal heart sounds. Absent: systolic murmur, diastolic murmur, rubs, gallop, clicks GI/Abdominal exam: Present: soft, normal bowel sounds. Absent: distended, tenderness, guarding, rebound, rigid Extremities exam: Present: normal inspection, full ROM, normal capillary refill. Absent: tenderness, pedal edema, joint swelling, calf tenderness Back exam: Present: normal inspection Neurological exam: Present: alert, oriented X3, CN II-XII intact Psychiatric exam: Present: normal affect, normal mood Skin exam: Present: warm, dry, intact, normal color. Absent: rash Course Vital Signs 04/06/20 02:37 Temperature 97.7 F Pulse Rate 95 Respiratory 18 Rate Blood Pressure 175/104 O2 Sat by Pulse 98 Oximetry - Reevaluation(s) Reevaluation #1: medical record is reviewed patient has symptoms resolved and feeling better patient is informed of results and ok for discharge Patient has fully placed with significant resolution of symptoms Medical Decision Making - Medical Decision Making 71 female DF for evaluation. Patient has hematuria, urinary retention, Montiel is placed patient symptoms are resolved labwork is otherwise normal patient can be discharged home - Lab Data Result diagrams: 04/06/20 03:20 04/06/20 03:20 Lab Results 04/06/20 04/06/20 04/06/20 Range/Units 03:03 03:20 03:20 WBC 5.6 (3.8-10.6) k/uL RBC 3.99 L (4.30-5.90) m/uL Hgb 13.7 (13.0-17.5) gm/dL Hct 41.6 (39.0-53.0) % MCV 104.5 H (80.0-100.0) fL MCH 34.3 (25.0-35.0) pg MCHC 32.8 (31.0-37.0) g/dL RDW 14.8 (11.5-15.5) % Plt Count 167 (150-450) k/uL MPV 7.6 Neutrophils % (Manual) 47 % Lymphocytes % (Manual) 42 % Monocytes % (Manual) 8 % Eosinophils % (Manual) 3 % Neutrophils # (Manual) 2.63 (1.3-7.7) k/uL Lymphocytes # (Manual) 2.35 (1.0-4.8) k/uL Monocytes # (Manual) 0.45 (0-1.0) k/uL Eosinophils # (Manual) 0.17 (0-0.7) k/uL Nucleated RBCs 0 (0-0) /100 WBC Manual Slide Review Performed Reactive Lymphocytes Present Macrocytosis Moderate Sodium 141 (137-145) mmol/L Potassium 3.3 L (3.5-5.1) mmol/L Chloride 111 H (98-107) mmol/L Carbon Dioxide 21 L (22-30) mmol/L Anion Gap 9 mmol/L BUN 20 (9-20) mg/dL Creatinine 1.21 (0.66-1.25) mg/dL Est GFR (CKD-EPI)AfAm 69 (>60 ml/min/1.73 sqM) Est GFR (CKD-EPI)NonAf 59 (>60 ml/min/1.73 sqM) Glucose 90 (74-99) mg/dL Calcium 8.5 (8.4-10.2) mg/dL Urine Color Red Urine Appearance Bloody (Clear) Urine RBC >182 H (0-5) /hpf Urine WBC >182 H (0-5) /hpf Urine Mucus Many H (None) /hpf Disposition Clinical Impression: Hematuria, Urinary retention Narrative: ro UTI Disposition: HOME SELF-CARE Condition: Good Instructions (If sedation given, give patient instructions): Urinary Retention in Men (ED), Hematuria (ED) Prescriptions: Ciprofloxacin HCl [Cipro] 500 mg PO Q12HR #20 tablet Is patient prescribed a controlled substance at d/c from ED?: No Referrals: Gildardo Angeles MD [STAFF PHYSICIAN] - 1-2 days
[2020-04-06 03:40] LABS: HCT 41.6 % (39.0-53.0); HGB 13.7 gm/dL (13.0-17.5); MCH 34.3 pg (25.0-35.0); MCHC 32.8 g/dL (31.0-37.0); MCV 104.5 fL (80.0-100.0); Macrocytosis Moderate; Mean Platelet Volume 7.6; Platelet Count 167 k/uL (150-450); RBC 3.99 m/uL (4.30-5.90); RDW 14.8 % (11.5-15.5); WBC 5.6 k/uL (3.8-10.6)
[2020-04-06 03:47] LABS: Calcium 8.5 mg/dL (8.4-10.2); Potassium 3.3 mmol/L (3.5-5.1)
[2020-04-06] MEDS ORDERED: CEPHALEXIN 500MG STARTER PACK 4 CAP BTL PO STA (03:57)
[2020-04-06] MEDS ORDERED: cefTRIAXone IN SWFI 1,000 MG/10 ML SYRINGE IVP STA (03:57)
[2020-04-06 04:11] LABS: Eosinophils # (M) 0.17 k/uL (0-0.7); Lymphocytes # (M) 2.35 k/uL (1.0-4.8); Monocytes # (M) 0.45 k/uL (0-1.0); Neutrophils # (M) 2.63 k/uL (1.3-7.7); Neutrophils % (M) 47 %; Nucleated Red Blood Cells 0 /100 WBC (0-0); Total Cells Counted 100
[2020-04-06 04:14] LABS: Reactive Lymphocytes Present
== END 2020-04-06 04:40 | disposition home or self-care (01) ==
LOC: EC 02:33
DX: R33.9 Retention of urine, unspecified (principal); R31.9 Hematuria, unspecified; I25.2 Old myocardial infarction; F17.290 Nicotine dependence, other tobacco product, uncomplicated; Z79.899 Other long term (current) drug therapy; Z91.013 Allergy to seafood; Z95.5 Presence of coronary angioplasty implant and graft
CPT/HCPCS: 36415; 51702; 80048; 81001; 85025; 87086; 99284

== ENCOUNTER 2020-04-07 18:51 | Emergency (ER) | payer OTHER, MEDICARE ==
[2020-04-07 18:58] VITALS: RESP 18; TEMP 97.8
--- NOTE | 2020-04-07 19:04 | ED ---
Recheck HPI - General Chief Complaint: Recheck/Abnormal Lab/Rx Stated Complaint: Catheter Issue Time Seen by Provider: 04/07/20 18:59 Source: patient Mode of arrival: ambulatory Limitations: no limitations - History of Present Illness Initial Comments: 74-year-old male presenting to the emergency department chief complain of urinary catheter malfunction. Patient states he was in emergency department yesterday and diagnosed with urinary retention and had a Montiel catheter inserted. Patient states he were to contacted the urologist who suggested the patient take [id number] Azo for symptomatic relief. Patient states she is also been prescribed ciprofloxacin which she has been taking as prescribed for urinary tract infection. He has an appointment to see the urologist this upcoming week. Patient states the Montiel catheter has been draining well, however since 5 PM today he reported no urinary output. States most of the urine is leaking around the catheter. He also reports mild suprapubic pressure. - Related Data Home Medications Medication Instructions Recorded Confirmed Atorvastatin [Lipitor] 20 mg PO DAILY 11/07/19 11/07/19 Metoprolol Tartrate [Lopressor] 12.5 mg PO BID 11/07/19 11/07/19 hydrALAZINE HCL [Apresoline] 50 mg PO BID-W/MEALS 11/07/19 11/07/19 Previous Rx's Medication Instructions Recorded Aspirin EC [Ecotrin Low Dose] 81 mg PO DAILY #30 tablet. 12/24/15 Ciprofloxacin HCl [Cipro] 500 mg PO Q12HR #20 tablet 04/06/20 Allergies Allergy/AdvReac Type Severity Reaction Status Date / Time shellfish derived Allergy Anaphylaxis Verified 04/06/20 02:50 Review of Systems ROS Statement: Those systems with pertinent positive or pertinent negative responses have been documented in the HPI. ROS Other: All systems not noted in ROS Statement are negative. Past Medical History Past Medical History: Coronary Artery Disease (CAD), Myocardial Infarction ([place]) Additional Past Medical History / Comment(s): cervical pinched nerve with cervical pain that travels into bilateral arms at times, R ankle badly fractured and still has problems with it, sinus infections in past. Urinary retention. Last Myocardial Infarction Date:: 2015 History of Any Multi-Drug Resistant Organisms: None Reported Past Surgical History: Heart Catheterization With Stent Past Anesthesia/Blood Transfusion Reactions: Unable to Obtain Additional Past Anesthesia/Blood Transfusion Reaction / Comment(s): Pt has never had anesthesia or received blood. Date of Last Stent Placement:: 2015 Past Psychological History: No Psychological Hx Reported Smoking Status: Light tobacco smoker Past Alcohol Use History: Occasional Past Drug Use History: None Reported - Past Family History Mother Family Medical History: No Reported History Additional Family Medical History / Comment(s): Mother is 96 yrs old and healthy. She lives alone and drives a car. Father History Unknown: Yes General Exam Limitations: no limitations General appearance: alert, in no apparent distress Head exam: Present: atraumatic, normocephalic, normal inspection Eye exam: Present: normal appearance, PERRL, EOMI Pupils: Present: normal accommodation ENT exam: Present: normal exam, normal oropharynx, mucous membranes moist, TM's normal bilaterally, normal external ear exam Neck exam: Present: normal inspection, full ROM. Absent: tenderness Respiratory exam: Present: normal lung sounds bilaterally. Absent: respiratory distress, wheezes, rales Cardiovascular Exam: Present: regular rate, normal rhythm, normal heart sounds. Absent: systolic murmur, diastolic murmur GI/Abdominal exam: Present: soft, tenderness (Mild suprapubic tenderness). Absent: distended, guarding, rebound, rigid exam: Absent: normal inspection (Leaking urine From the meatus around the Montiel catheter. ), testicular tenderness, urethral discharge, scrotal swelling, vertical testicular lie Extremities exam: Present: normal inspection, full ROM, normal capillary refill. Absent: tenderness, pedal edema, joint swelling, calf tenderness Back exam: Present: normal inspection, full ROM. Absent: tenderness, CVA tenderness (R), CVA tenderness (L) Neurological exam: Present: alert, oriented X3, normal gait Psychiatric exam: Present: normal affect, normal mood Skin exam: Present: warm, dry, intact, normal color Course Vital Signs 04/07/20 04/07/20 18:53 21:16 Temperature 97.8 F Pulse Rate 94 69 Respiratory 18 18 Rate Blood Pressure 161/91 166/102 O2 Sat by Pulse 97 96 Oximetry Medical Decision Making - Medical Decision Making 74-year-old female presenting to the emergency department with a chief complaint of Montiel catheter malfunction. On physical examination, patient does have urinary discharge around the Montiel catheter. New Montiel was inserted and it was properly functioning. BMP reveals slight increase in creatinine to 1.34. Patient otherwise felt comfortable and is ready go home. Patient is currently taking ciprofloxacin for urinary tract infection that was diagnosed 2 days ago. Patient has an appointment on Friday to see urology. Return parameters discussed the patient is understanding and agreeable. Case discussed with physician. - Lab Data Result diagrams: 04/07/20 20:26 04/07/20 20:26 Lab Results 04/07/20 04/07/20 Range/Units 20: 20:26 WBC 5.7 (3.8-10.6) k/uL RBC 3.85 L (4.30-5.90) m/uL Hgb 13.9 (13.0-17.5) gm/dL Hct 40.1 (39.0-53.0) % MCV 104.3 H (80.0-100.0) fL MCH 36.0 H (25.0-35.0) pg MCHC 34.5 (31.0-37.0) g/dL RDW 14.2 (11.5-15.5) % Plt Count 170 (150-450) k/uL MPV 8.0 Neutrophils % 59 % Lymphocytes % 27 % Monocytes % 7 % Eosinophils % 3 % Basophils % 1 % Neutrophils # 3.3 (1.3-7.7) k/uL Lymphocytes # 1.5 (1.0-4.8) k/uL Monocytes # 0.4 (0-1.0) k/uL Eosinophils # 0.2 (0-0.7) k/uL Basophils # 0.1 (0-0.2) k/uL Macrocytosis Slight Sodium 139 (137-145) mmol/L Potassium 3.7 (3.5-5.1) mmol/L Chloride 110 H (98-107) mmol/L Carbon Dioxide 24 (22-30) mmol/L Anion Gap 5 mmol/L BUN 17 (9-20) mg/dL Creatinine 1.34 H (0.66-1.25) mg/dL Est GFR (CKD-EPI)AfAm 61 (>60 ml/min/1.73 sqM) Est GFR (CKD-EPI)NonAf 53 (>60 ml/min/1.73 sqM) Glucose 107 H (74-99) mg/dL Calcium 8.2 L (8.4-10.2) mg/dL Disposition Clinical Impression: Malfunction of Montiel catheter Disposition: HOME SELF-CARE Condition: Stable Instructions (If sedation given, give patient instructions): Montiel Catheter Placement and Care (ED), Montiel Catheter Removal (DC) Additional Instructions: Follow-up with urology. Return to emergency department if symptoms worsen. Is patient prescribed a controlled substance at d/c from ED?: No Referrals: None,Stated [Primary Care Provider] - 1-2 days Time of Disposition: 21:04
[2020-04-07] MEDS ORDERED: LIDOCAINE URO-JET JELLY 2% 5 ML KIT URETHRAL ONE (19:22)
[2020-04-07 20:33] LABS: Basophils # (A) 0.1 k/uL (0-0.2); Basophils % (A) 1 %; Eosinophils # (A) 0.2 k/uL (0-0.7); Eosinophils % (A) 3 %; HCT 40.1 % (39.0-53.0); HGB 13.9 gm/dL (13.0-17.5); Lymphocytes # (A) 1.5 k/uL (1.0-4.8); Lymphocytes % (A) 27 %; MCHC 34.5 g/dL (31.0-37.0); MCV 104.3 fL (80.0-100.0); Macrocytosis Slight; Monocytes # (A) 0.4 k/uL (0-1.0); Monocytes % (A) 7 %; Neutrophils # (A) 3.3 k/uL (1.3-7.7); Neutrophils % (A) 59 %; Platelet Count 170 k/uL (150-450); RBC 3.85 m/uL (4.30-5.90); RDW 14.2 % (11.5-15.5); WBC 5.7 k/uL (3.8-10.6)
[2020-04-07 20:42] LABS: Calcium 8.2 mg/dL (8.4-10.2); Potassium 3.7 mmol/L (3.5-5.1)
[2020-04-07 21:18] VITALS: BP 166/102; PULSE 69
== END 2020-04-07 21:18 | disposition home or self-care (01) ==
LOC: EC 18:51
DX: T83.011A Breakdown (mechanical) of indwelling urethral catheter, initial encounter (principal); I25.2 Old myocardial infarction; F17.200 Nicotine dependence, unspecified, uncomplicated; Z91.013 Allergy to seafood; Z95.5 Presence of coronary angioplasty implant and graft
CPT/HCPCS: 36415; 51702; 80048; 85025; 99284

== ENCOUNTER 2020-04-08 00:47 | Emergency (ER) | payer OTHER, MEDICARE ==
[2020-04-08 00:53] VITALS: BP 174/100; PULSE 75; RESP 19; TEMP 98
--- NOTE | 2020-04-08 01:31 | ED ---
Male Urogenital HPI - General Chief complaint: Urogenital Stated complaint: Urogenital Time Seen by Provider: 04/08/20 00:58 Source: patient Mode of arrival: wheelchair - History of Present Illness Initial comments: Patient is 74-year-old man who had a catheter placed here for urinary retention who states that the catheter stopped draining and he is now having suprapubic pain Complaint: other (Abdominal pain) Onset/Timin -: hour(s) Location: abdomen Radiation: none Severity: moderate Quality: sharp Consistency: constant Improves with: none Worsens with: none indwelling catheter Reports: urinary retention - Related Data Home Medications Medication Instructions Recorded Confirmed Atorvastatin [Lipitor] 20 mg PO DAILY 11/07/19 11/07/19 Metoprolol Tartrate [Lopressor] 12.5 mg PO BID 11/07/19 11/07/19 hydrALAZINE HCL [Apresoline] 50 mg PO BID-W/MEALS 11/07/19 11/07/19 Previous Rx's Medication Instructions Recorded Aspirin EC [Ecotrin Low Dose] 81 mg PO DAILY #30 tablet. 12/24/15 Ciprofloxacin HCl [Cipro] 500 mg PO Q12HR #20 tablet 04/06/20 Allergies Allergy/AdvReac Type Severity Reaction Status Date / Time shellfish derived Allergy Anaphylaxis Verified 04/08/20 00:53 Review of Systems ROS Statement: Those systems with pertinent positive or pertinent negative responses have been documented in the HPI. ROS Other: All systems not noted in ROS Statement are negative. Constitutional: Denies: fever, chills Respiratory: Denies: cough, dyspnea Cardiovascular: Denies: chest pain, palpitations Gastrointestinal: Reports: as per HPI, abdominal pain. Denies: nausea, vomiting, diarrhea, constipation Genitourinary: Reports: as per HPI, urgency, hematuria. Denies: dysuria, frequency, discharge, testicular pain, testicular mass Musculoskeletal: Denies: back pain Skin: Denies: rash Neurological: Denies: headache Past Medical History Past Medical History: Coronary Artery Disease (CAD), Myocardial Infarction ([place]) Additional Past Medical History / Comment(s): cervical pinched nerve with cervical pain that travels into bilateral arms at times, R ankle badly fractured and still has problems with it, sinus infections in past. Urinary retention. Last Myocardial Infarction Date:: 2015 History of Any Multi-Drug Resistant Organisms: None Reported Past Surgical History: Heart Catheterization With Stent Past Anesthesia/Blood Transfusion Reactions: Unable to Obtain Additional Past Anesthesia/Blood Transfusion Reaction / Comment(s): Pt has never had anesthesia or received blood. Date of Last Stent Placement:: 2015 Past Psychological History: No Psychological Hx Reported Smoking Status: Light tobacco smoker Past Alcohol Use History: Occasional Past Drug Use History: None Reported - Past Family History Mother Family Medical History: No Reported History Additional Family Medical History / Comment(s): Mother is 96 yrs old and healthy. She lives alone and drives a car. Father History Unknown: Yes General Exam General appearance: alert, in no apparent distress Head exam: Present: atraumatic, normocephalic Eye exam: Present: normal appearance. Absent: scleral icterus, conjunctival injection Respiratory exam: Present: normal lung sounds bilaterally. Absent: respiratory distress, wheezes, rales, rhonchi Cardiovascular Exam: Present: regular rate, normal rhythm, normal heart sounds. Absent: systolic murmur, diastolic murmur, rubs, gallop GI/Abdominal exam: Present: soft, tenderness (Suprapubic). Absent: distended, guarding, rebound, rigid, mass, pulsatile mass, hernia Extremities exam: Present: normal inspection, normal capillary refill. Absent: pedal edema, calf tenderness Back exam: Present: normal inspection. Absent: CVA tenderness (R), CVA tenderness (L) Neurological exam: Present: alert Skin exam: Present: warm, dry, intact, normal color. Absent: rash Course Vital Signs 04/08/20 00:50 Temperature 98 F Pulse Rate 75 Respiratory 19 Rate Blood Pressure 174/100 O2 Sat by Pulse 99 Oximetry Medical Decision Making - Medical Decision Making Patient is 74-year-old man presenting with Montiel catheter that stopped draining. Bladder scan revealed approximately 120 mls urine. The catheter was irrigated, dislodging clots and the patient did have drainage of the urine. His symptoms resolved. Disposition Clinical Impression: Malfunction of Montiel catheter Disposition: HOME SELF-CARE Condition: Good Instructions (If sedation given, give patient instructions): Urinary Retention in Men (ED) Is patient prescribed a controlled substance at d/c from ED?: No Referrals: None,Stated [Primary Care Provider] - 1-2 days Gildardo Angeles MD [STAFF PHYSICIAN] - 1-2 days
== END 2020-04-08 01:38 | disposition home or self-care (01) ==
LOC: EC 00:47
DX: T83.018A Breakdown (mechanical) of other urinary catheter, initial encounter (principal); I25.10 Atherosclerotic heart disease of native coronary artery without angina pectoris; I25.2 Old myocardial infarction; F17.210 Nicotine dependence, cigarettes, uncomplicated; Z79.899 Other long term (current) drug therapy; Z91.013 Allergy to seafood; Z95.5 Presence of coronary angioplasty implant and graft
CPT/HCPCS: 99284

== ENCOUNTER 2020-04-08 15:29 | Emergency (ER) | payer OTHER, MEDICARE ==
[2020-04-08 15:34] VITALS: BP 168/79; PULSE 79; RESP 18; TEMP 98.3
--- NOTE | 2020-04-08 15:42 | ED ---
Male Urogenital HPI - General Chief complaint: Urogenital Stated complaint: Catheter Time Seen by Provider: 04/08/20 15:39 Source: patient Mode of arrival: ambulatory Limitations: no limitations - History of Present Illness Initial comments: 74-year-old male with recently placed full catheter presenting to the emergency department with chief complaint of catheter malfunction. Patient states she has been here last few days secondary to catheter malfunction. Patient states the catheter was initially placed about 3 days ago following urinary retention. States he was here earlier today and a new Montiel catheter inserted. Patient states this was working fine until he developed some blood clots after he woke up today. States now there is some suprapubic pressure. Patient states there is leaking around the Montiel. - Related Data Home Medications Medication Instructions Recorded Confirmed Atorvastatin [Lipitor] 20 mg PO DAILY 11/07/19 11/07/19 Metoprolol Tartrate [Lopressor] 12.5 mg PO BID 11/07/19 11/07/19 hydrALAZINE HCL [Apresoline] 50 mg PO BID-W/MEALS 11/07/19 11/07/19 Previous Rx's Medication Instructions Recorded Aspirin EC [Ecotrin Low Dose] 81 mg PO DAILY #30 tablet. 12/24/15 Ciprofloxacin HCl [Cipro] 500 mg PO Q12HR #20 tablet 04/06/20 Allergies Allergy/AdvReac Type Severity Reaction Status Date / Time shellfish derived Allergy Anaphylaxis Verified 04/08/20 15:34 Review of Systems ROS Statement: Those systems with pertinent positive or pertinent negative responses have been documented in the HPI. ROS Other: All systems not noted in ROS Statement are negative. Past Medical History Past Medical History: Coronary Artery Disease (CAD), Myocardial Infarction ([place]) Additional Past Medical History / Comment(s): cervical pinched nerve with cervical pain that travels into bilateral arms at times, R ankle badly fractured and still has problems with it, sinus infections in past. Urinary retention. Last Myocardial Infarction Date:: 2015 History of Any Multi-Drug Resistant Organisms: None Reported Past Surgical History: Heart Catheterization With Stent Past Anesthesia/Blood Transfusion Reactions: Unable to Obtain Additional Past Anesthesia/Blood Transfusion Reaction / Comment(s): Pt has never had anesthesia or received blood. Date of Last Stent Placement:: 2015 Past Psychological History: No Psychological Hx Reported Smoking Status: Light tobacco smoker Past Alcohol Use History: Occasional Past Drug Use History: None Reported - Past Family History Mother Family Medical History: No Reported History Additional Family Medical History / Comment(s): Mother is 96 yrs old and healthy. She lives alone and drives a car. Father History Unknown: Yes General Exam Limitations: no limitations General appearance: alert, in no apparent distress Head exam: Present: atraumatic, normocephalic, normal inspection Eye exam: Present: normal appearance, PERRL, EOMI Pupils: Present: normal accommodation ENT exam: Present: normal exam, normal oropharynx, mucous membranes moist, TM's normal bilaterally, normal external ear exam Neck exam: Present: normal inspection, full ROM. Absent: tenderness Respiratory exam: Present: normal lung sounds bilaterally. Absent: respiratory distress, wheezes, rales Cardiovascular Exam: Present: regular rate, normal rhythm, normal heart sounds. Absent: systolic murmur, diastolic murmur exam: Absent: normal inspection (Urine is leaking around the Montiel catheter at the meatus), testicular tenderness, urethral discharge, scrotal swelling, vertical testicular lie Extremities exam: Present: normal inspection, full ROM, normal capillary refill. Absent: tenderness, pedal edema, joint swelling, calf tenderness Back exam: Present: normal inspection, full ROM. Absent: tenderness, CVA tenderness (R), CVA tenderness (L) Neurological exam: Present: alert, oriented X3 Psychiatric exam: Present: normal affect, normal mood Skin exam: Present: warm, dry, intact, normal color Course Vital Signs 04/08/20 15:31 Temperature 98.3 F Pulse Rate 79 Respiratory 18 Rate Blood Pressure 168/79 O2 Sat by Pulse 99 Oximetry Medical Decision Making - Medical Decision Making 74-year-old male presenting to the emergency department with chief complaint of Montiel catheter function. On physical examination, patient has urine leaking around the Montiel catheter. No tenderness is has an infection of the penis. Testicles. Montiel catheter was flushed and began to fully function. Patient discharged. He has an appointment with urology in 2 days. Return parameters discussed the patient was understanding and agreeable. Disposition Clinical Impression: Malfunction of Montiel catheter Disposition: HOME SELF-CARE Condition: Stable Instructions (If sedation given, give patient instructions): Montiel Catheter Placement and Care (ED) Additional Instructions: Follow-up with urology. Return to emergency department if symptoms worsen. Is patient prescribed a controlled substance at d/c from ED?: No Referrals: None,Stated [Primary Care Provider] - 1-2 days Time of Disposition: 16:44
== END 2020-04-08 18:05 | disposition home or self-care (01) ==
LOC: EC 15:29
DX: T83.018A Breakdown (mechanical) of other urinary catheter, initial encounter (principal); I25.10 Atherosclerotic heart disease of native coronary artery without angina pectoris; I25.2 Old myocardial infarction; F17.210 Nicotine dependence, cigarettes, uncomplicated; Z91.013 Allergy to seafood; Z79.899 Other long term (current) drug therapy; Z95.5 Presence of coronary angioplasty implant and graft
CPT/HCPCS: 99283

== ENCOUNTER → 2020-04-21 | Outpatient (CLI) | payer OTHER, MEDICARE ==
--- NOTE | 2020-04-21 13:14 | CT ---
EXAMINATION TYPE: CT abdomen pelvis wo con DATE OF EXAM: 04/21/2020 HISTORY: Hematuria, recent history of bladder cancer. CT DLP: 944 mGycm. Automated Exposure Control for Dose Reduction was Utilized. TECHNIQUE: CT scan of the abdomen and pelvis is performed without oral or IV contrast. COMPARISON: NONE FINDINGS: Within the limitations of a non-contrast study, the following observations are made. LUNG BASES: Coronary stent in the RCA distribution. LIVER/GB: Visualized liver is heterogeneously hypodense consistent with diffuse fatty infiltration. PANCREAS: No significant abnormality is seen. SPLEEN: There is 1.2 cm splenule in the anterior splenic hilum axial image 34 towards the pancreatic tail. ADRENALS: No significant abnormality is seen. KIDNEYS: There is 3 to 4 mm calculus right kidney upper pole level axial image 49 and similar 3 to 4 mm calculus mid to lower pole level posteriorly image 55. Adjacent 2 to 3 mm calculus noted sagittal image 37 No left-sided nephrolithiasis. No hydronephrosis seen bilaterally. In the posterior inferior aspect of the bladder there is lobulated mass measuring 5.2 x 2.8 cm. There are suspected irregular intraluminal calcifications anterior to this in the dependent portion of bladder versus calcification s related to mass. BOWEL: Normal-appearing appendix from cecum. Diverticula in the left and sigmoid colon. No CT evidenc e for acute diverticulitis. No suspicious small or large bowel dilatation. GENITAL ORGANS: Prostate gland upper limits of normal in size with some posterior calcifications. LYMPH NODES: No greater than 1cm abdominal or pelvic lymph nodes are appreciated. Some prominent but subcentimeter lymph nodes in the retroperitoneum. OSSEOUS STRUCTURES: Multilevel facet arthropathy in the mid to lower lumbar spine. Multilevel spurrin g in the spine with slight scoliotic curvature. OTHER: Moderate calcified plaque of the aorta extends into branch vessels. Tiny fat-containing umbili marcelo hernia. IMPRESSION: Intraluminal bladder mass suspicious for known bladder cancer. There are some small right -sided renal calculi. There are larger and more numerous intraluminal calculi in the bladder.
== END | disposition home or self-care (01) ==
LOC: RADCTMAIN 12:39
PROVIDERS: ATTEND Urology
DX: N20.0 Calculus of kidney (principal); N21.0 Calculus in bladder; N32.89 Other specified disorders of bladder; Z91.048 Other nonmedicinal substance allergy status
CPT/HCPCS: 74176

== ENCOUNTER → 2020-06-12 | Outpatient (CLI) | payer OTHER, MEDICARE ==
[2020-06-12 11:01] LABS: Basophils # (A) 0.1 k/uL (0-0.2); Basophils % (A) 1 %; Eosinophils # (A) 0.2 k/uL (0-0.7); Eosinophils % (A) 6 %; HCT 40.1 % (39.0-53.0); HGB 13.2 gm/dL (13.0-17.5); Lymphocytes # (A) 1.6 k/uL (1.0-4.8); Lymphocytes % (A) 40 %; MCH 33.5 pg (25.0-35.0); MCV 101.5 fL (80.0-100.0); Macrocytosis Slight; Mean Platelet Volume 7.7; Monocytes # (A) 0.4 k/uL (0-1.0); Monocytes % (A) 10 %; Neutrophils # (A) 1.7 k/uL (1.3-7.7); Neutrophils % (A) 41 %; Platelet Count 161 k/uL (150-450); RBC 3.95 m/uL (4.30-5.90); RDW 14.3 % (11.5-15.5); WBC 4.1 k/uL (3.8-10.6)
[2020-06-12 11:13] LABS: Calcium 8.5 mg/dL (8.4-10.2); Potassium 3.7 mmol/L (3.5-5.1)
[2020-06-12 15:47] LABS: Appearance,Urine Turbid (Clear); Bacteria,Urine Rare /hpf; Bilirubin,Urine Negative (Negative); Blood,Urine Small (Negative); Color,Urine Yellow; Glucose,Urine (UA) Negative (Negative); Ketones,Urine Negative (Negative); Leukocyte Esterase,Urine Large (Negative); Nitrite,Urine Negative (Negative); Protein,Urine 1+ (Negative); RBC,Urine 16 /hpf (0-5); Specific Gravity,Urine 1.016 (1.001-1.035); Urobilinogen,Urine <2.0 mg/dL (<2.0); WBC,Urine >182 /hpf (0-5)
== END ==
LOC: LABPAT 10:16
PROVIDERS: ATTEND Urology
DX: Z01.818 Encounter for other preprocedural examination (principal); C67.9 Malignant neoplasm of bladder, unspecified; N21.9 Calculus of lower urinary tract, unspecified
CPT/HCPCS: 36415; 80048; 81001; 85025; 87077; 87086; 87186

== ENCOUNTER 2020-06-19 06:31 | Day surgery (SDC) | payer OTHER, MEDICARE ==
[2020-06-15 11:52] VITALS: BMI 26.5
--- NOTE | 2020-06-16 17:03 | P.HPIHPCON ---
History of Present Illness H&P Date: 06/16/20 Chief Complaint: Bladder Cancer Mr. Griffith is a 74-year-old male with history of high-grade T1 bladder cancer, patient had extensive bladder tumor that covered 70% of the bladder mucosa. He is status post TURBT. Given his pathology we discussed with him the option of re-resection. Of note his ureteral orifices were not visualized at the time of TURBT, thus option of bilateral retrograde pyelogram was discussed with him to evaluate his upper tract. Of note he also had calcification, versus bladder stones, this could not be removed at the time of initial TURBT due to bleeding risj. Discussed with him that if the stones are still present we will proceed with cystolitholapaxy in the same time. Discussed with him risk of surgery which includes but not limited to bleeding, infection, bladder perforation. Also discussed risk from anesthesia. He understood all the risk and agreed to proceed with TURBT, bilateral retrograde pyelogram, cystolitholapaxy Consent for Procedure: I have explained the operation/procedure to the patient, including the risks, benefits, side effects, alternative therapies (including not receiving the proposed treatment or service), the likelihood of the patient achieving his/her goals, and potential recuperation problems for the procedure/sedation/analgesia, as well as any blood products, if indicated. I also explained to the patient the risks, benefits and side effects of the alternatives, as well as the risks related to not receiving the proposed procedure, care, treatment, or services. Past Medical History Past Medical History: Coronary Artery Disease (CAD), GERD/Reflux, Hyperlipidemia, Hypertension, Myocardial Infarction ([place]) Additional Past Medical History / Comment(s): cervical pinched nerve with cervical pain that travels into bilateral arms at times, lower lumbar 4-5, 5-6 sciatica rt hip, R ankle badly fractured and still has problems with it, sinus infections in past. Urinary retention. bladder stone and blood in urine Last Myocardial Infarction Date:: 2015 x2 History of Any Multi-Drug Resistant Organisms: None Reported Past Surgical History: Heart Catheterization With Stent Past Anesthesia/Blood Transfusion Reactions: Unable to Obtain Additional Past Anesthesia/Blood Transfusion Reaction / Comment(s): Pt has never had anesthesia or received blood. Date of Last Stent Placement:: 2015 Smoking Status: Light tobacco smoker - Past Family History Mother Family Medical History: No Reported History Additional Family Medical History / Comment(s): Mother is 96 yrs old and healthy. She lives alone and drives a car. Father History Unknown: Yes Medications and Allergies Home Medications Medication Instructions Recorded Confirmed Type Aspirin EC [Ecotrin Low Dose] 81 mg PO DAILY #30 tablet. 12/24/15 06/15/20 Rx Atorvastatin [Lipitor] 20 mg PO DAILY 11/07/19 06/15/20 History Metoprolol Tartrate [Lopressor] 12.5 mg PO BID 11/07/19 06/15/20 History hydrALAZINE HCL [Apresoline] 50 mg PO BID-W/MEALS 11/07/19 06/15/20 History Cyanocobalamin (Vitamin B-12) 1,000 mcg PO DAILY 06/15/20 06/15/20 History [Vitamin B-12] Losartan Potassium [Cozaar] 100 mg PO DAILY 06/15/20 06/15/20 History Multivitamins, Thera [Multivitamin 1 tab PO DAILY 06/15/20 06/15/20 History (formulary)] Allergies Allergy/AdvReac Type Severity Reaction Status Date / Time Iodine and Iodide Containing Allergy Anaphylaxis Verified 06/15/20 11:29 Produc shellfish derived Allergy Anaphylaxis Verified 06/15/20 11:28 Surgical - Exam - General well developed, well nourished, no distress, no pain - ENT normal nares, normal mucosa - Respiratory normal expansion, normal respiratory effort - Abdomen Abdomen: soft, non tender Assessment and Plan Assessment: 74-year-old male with history of high-grade T1 bladder cancer -Or for TURBT, cystolitholapaxy, bilateral retrograde pyelogram
[~2020-06-19 06:31] MED LIST: DEXAMETHASONE SOD PHOSPHATE 4 MG/ML 1 ML VIAL IV ONE; HYDROmorphone 0.5 MG/0.5 ML SYRINGE IVP PRN; LACTATED RINGERS 1,000 ML IV SCH; LIDOCAINE 1% (10MG/ML) FOR IV START INTRADERMA PRN; MIDAZOLAM 2 MG/2 ML VIAL IV PRN; ONDANSETRON 4 MG/2 ML VIAL IVP ONE
[2020-06-19] MEDS ORDERED: fentaNYL (PF) 50 MCG/ML 2 ML AMP ONE (07:30)
[2020-06-19] MEDS ORDERED: ePHEDrine SULFATE/0.9% NACL/PF 50 MG/5 ML SYRINGE IV ONE (07:30)
[2020-06-19] MEDS ORDERED: MIDAZOLAM 2 MG/2 ML VIAL ONE (07:30)
[2020-06-19] MEDS ORDERED: SUCCINYLCHOLINE CHLORIDE 100 MG/5 ML SYR IV ONE (07:30)
[2020-06-19] MEDS ORDERED: NEOSTIGMINE 1 MG/ML 10 ML VIAL ONE (07:30)
[2020-06-19] MEDS ORDERED: ROCURONIUM 10 MG/ML (5 ML VIAL) IV ONE (07:30)
[2020-06-19] MEDS ORDERED: PROPOFOL 10 MG/ML 20 ML VIAL IV ONE (07:30)
[2020-06-19] MEDS ORDERED: GLYCOPYRROLATE 0.2 MG/ML 2 ML VIAL ONE (07:30)
[2020-06-19] MEDS ORDERED: LIDOCAINE 1% INJ 10MG/ML (20 ML MDV) ONE (07:30)
[2020-06-19] MEDS ORDERED: PHENYLEPHRINE-0.9% NACL SYG 1,000 MCG/10 ML SYRINGE ONE (07:30)
[2020-06-19] MEDS ORDERED: IOHEXOL 350 MG/ML 50 ML in EMPTY BAG 1 BAG IRRIGATION ONE (08:25)
[2020-06-19] MEDS ORDERED: LACTATED RINGERS 1,000 ML IV ONE (09:03)
--- NOTE | 2020-06-19 09:20 | FL ---
EXAMINATION TYPE: FL urography retrograde DATE OF EXAM: 06/19/2020 FLUOROSCOPY Fluoroscopy time of 2 minutes 0 seconds was used during stent placement. 1 image/s document/s the pr min.
[2020-06-19 09:41] VITALS: TEMP 97.1
[2020-06-19 09:47] VITALS: RESP 16
[2020-06-19] MEDS ORDERED: MEPERIDINE 50 MG/ML SYRINGE IVP ONE (10:42)
[2020-06-19 10:55] VITALS: BP 155/87; PULSE 72
--- NOTE | 2020-06-19 22:14 | P.OP ---
Date of Procedure: 06/19/20 Preoperative Diagnosis: Bladder tumor,bladder stones Postoperative Diagnosis: same Procedure(s) Performed: Cystoscopy, TURBT ( Large), Cystolithalopaxy(<2.5cm stone), bilateral reterograde pyelogram and left stent placement. Implants: 6 Fr X 28 cm stent left on string Anesthesia: KAILA Surgeon: Gildardo Angeles Estimated Blood Loss (ml): 30 Pathology: other (bladder tumor scar) Condition: stable Disposition: PACU Indications for Procedure: Mr. Griffith is a 74-year-old male with history of high-grade T1 bladder cancer, patient had extensive bladder tumor that covered 70% of the bladder mucosa. He is status post TURBT. Given his pathology we discussed with him the option of re-resection. Of note his ureteral orifices were not visualized at the time of TURBT, thus option of bilateral retrograde pyelogram was discussed with him to evaluate his upper tract. Of note he also had calcification, versus bladder stones, this could not be removed at the time of initial TURBT due to bleeding risj. Discussed with him that if the stones are still present we will proceed with cystolitholapaxy in the same time. Discussed with him risk of surgery which includes but not limited to bleeding, infection, bladder perforation. Also discussed risk from anesthesia. He understood all the risk and agreed to proceed with TURBT, bilateral retrograde pyelogram, cystolitholapaxy Operative Findings: no residual tumor, scar from trigone and posterior bladder wall was resected down and sent to pathology. 3 stone within the bladder measuring approximetely 1 cm each was fragmented using the holmium laser. left RP showed mild hydronep hrosis down to the UVJ, no filling defect appreciated. normal right RP. Description of Procedure: Patient was brought to the operating room, he was prepped and draped in sterile fashion and placed in dorsal lithotimy position. Cystoscopy fitted with 21 Fr sheath was inserted per urethra, cystoscopy was performed which showed no new papillary bladder tumor, 3 stone were visualized in the bladder. At this time attention was carried to the right ureteral orifice, there was significant J hooking of the ureteral orfice, but I was able to intubate the ureteral orfice with the 6 Fr open ended catheter, RP was performed which showed no filling defect along the course of the ureter, there was some dilation of the renal pelvis but no hydronephrosis appreciated and no filling defect in the collecting system was observe. Delayed imaging showed adequate drainage of contrast from collecting system. Attention was then carried to the left side, there was also significant J hooking on left sided I attempted to intubate the ureteral orfice using ureteral catheter and sensor wire but was not able to secondary to the J hooking. At this time a semi rigid ureteroscope was inserted and I was able to angle the scope to allow for passage of the wire. next the semirigid ureteroscope was withdrawn and an open ended catheter was passed over the wire, Reterograde pyelogram was performed which showed mild hydroureteronephrosis down to the UVJ, though no filling defect was appreciated. Given this finding, decision was made to proceed with stent placement on left. stent was passed over the wire, proximal curl was visualized on fluroscopy and distal curl was visualized using the cystoscope. stent was left on string. At this time attention was carried to the bladder stones. using the holmium laser the bladder stones were fragmented, stone fragments were removed and sent to pathology. Using the bipolar resectoscope the previous tumor scar along the posterior and trigone was resected down to muscle, of note the bulk of tumor on the initial TURBT was at that location. The additional resection scar along the lateral bryan, dome and bladder neck were visualized and showed no evidence of recurrence. Total area of resection was 8 cm. The area of resection was thoroughly fulgurated. Bladder was emptied at the end of case, patient abdomen was soft. a 20 Fr schaeffer was placed with return of clear urine. stent was left on string and was tapped to the catheter. Patient was awaken from anesthesia and taken to recovery in stable condition.
== END 2020-06-19 11:18 | disposition home or self-care (01) ==
LOC: OR 06:31
PROVIDERS: ATTEND Urology
DX: C67.9 Malignant neoplasm of bladder, unspecified (principal); N21.0 Calculus in bladder; N13.30 Unspecified hydronephrosis; I25.10 Atherosclerotic heart disease of native coronary artery without angina pectoris; K21.9 Gastro-esophageal reflux disease without esophagitis; E78.5 Hyperlipidemia, unspecified; I10 Essential (primary) hypertension; I25.2 Old myocardial infarction; F17.210 Nicotine dependence, cigarettes, uncomplicated; Z79.82 Long term (current) use of aspirin; Z79.899 Other long term (current) drug therapy; Z88.8 Allergy status to other drugs, medicaments and biological substances; Z91.013 Allergy to seafood; Z95.5 Presence of coronary angioplasty implant and graft
CPT/HCPCS: 88307; 82365; 74420; 52240; 52318; 52332; C2625; C1758; C1769; J2250; J1100; J2710; J2175; J0690; J2405; J2001; J3010; J2370; J0330; J2704; Q9967

== ENCOUNTER 2020-10-09 00:38 | Emergency (ER) | payer OTHER, MEDICARE ==
[2020-10-09 00:49] VITALS: RESP 16; TEMP 97.5
--- NOTE | 2020-10-09 01:04 | ED ---
Back Pain HPI - General Chief Complaint: Back Pain/Injury Stated Complaint: back pain Time Seen by Provider: 10/09/20 00:43 Source: patient, EMS Limitations: no limitations - History of Present Illness Initial Comments: 74-year-old male presents to the emergency department with a chief complaint of back pain. States she fell on the patient laying on the kitchen counter with his legs off the ground. The patient was not aware how he got there. She states the patient was diagnosed with bladder cancer about 8 weeks ago and is currently undergoing treatment with [facility]. states the patient has been doing relatively okay throughout the day, however nighttime he is more confused. She states this is been ongoing ever since the bladder cancer treatments at started. Patient did report drinking one glass of scotch prior to going there. states this is typical for him to do. She believes he did not have with him his usual. Patient reports his feeling well and does not have any complaints. - Related Data Home Medications Medication Instructions Recorded Confirmed Atorvastatin [Lipitor] 20 mg PO DAILY 11/07/19 06/15/20 Metoprolol Tartrate [Lopressor] 12.5 mg PO BID 11/07/19 06/15/20 hydrALAZINE HCL [Apresoline] 50 mg PO BID-W/MEALS 11/07/19 06/15/20 Cyanocobalamin (Vitamin B-12) 1,000 mcg PO DAILY 06/15/20 06/15/20 [Vitamin B-12] Losartan Potassium [Cozaar] 100 mg PO DAILY 06/15/20 06/15/20 Multivitamins, Thera [Multivitamin 1 tab PO DAILY 06/15/20 06/15/20 (formulary)] Previous Rx's Medication Instructions Recorded Aspirin EC [Ecotrin Low Dose] 81 mg PO DAILY #30 tablet. 12/24/15 Ibuprofen 600 mg PO Q8H PRN #30 tab 06/19/20 Allergies Allergy/AdvReac Type Severity Reaction Status Date / Time Iodine and Iodide Containing Allergy Anaphylaxis Verified 06/15/20 11:29 Produc shellfish derived Allergy Anaphylaxis Verified 06/15/20 11:28 Review of Systems ROS Statement: Those systems with pertinent positive or pertinent negative responses have been documented in the HPI. ROS Other: All systems not noted in ROS Statement are negative. Past Medical History Past Medical History: Coronary Artery Disease (CAD), Myocardial Infarction ([place]) Additional Past Medical History / Comment(s): cervical pinched nerve with cervical pain that travels into bilateral arms at times, R ankle badly fractured and still has problems with it, sinus infections in past. Urinary retention. Last Myocardial Infarction Date:: 2015 History of Any Multi-Drug Resistant Organisms: None Reported Past Surgical History: Heart Catheterization With Stent Past Anesthesia/Blood Transfusion Reactions: Unable to Obtain Additional Past Anesthesia/Blood Transfusion Reaction / Comment(s): Pt has never had anesthesia or received blood. Date of Last Stent Placement:: 2015 Past Psychological History: No Psychological Hx Reported Smoking Status: Light tobacco smoker Past Alcohol Use History: Occasional Past Drug Use History: None Reported - Past Family History Mother Family Medical History: No Reported History Additional Family Medical History / Comment(s): Mother is 96 yrs old and healthy. She lives alone and drives a car. Father History Unknown: Yes General Exam Limitations: no limitations General appearance: alert, in no apparent distress Head exam: Present: atraumatic, normocephalic, normal inspection Eye exam: Present: normal appearance, PERRL, EOMI Pupils: Present: normal accommodation ENT exam: Present: normal exam, normal oropharynx, mucous membranes moist, TM's normal bilaterally, normal external ear exam Neck exam: Present: normal inspection, full ROM. Absent: tenderness, meningismus, lymphadenopathy, thyromegaly Respiratory exam: Present: normal lung sounds bilaterally. Absent: respiratory distress, wheezes, rales, rhonchi, stridor, chest wall tenderness, accessory muscle use Cardiovascular Exam: Present: regular rate, normal rhythm, normal heart sounds. Absent: systolic murmur, diastolic murmur GI/Abdominal exam: Present: soft. Absent: distended, tenderness, guarding, rigid exam: Present: normal inspection. Absent: testicular tenderness, urethral discharge, scrotal swelling, vertical testicular lie Extremities exam: Present: normal inspection, full ROM, normal capillary refill. Absent: tenderness Back exam: Present: normal inspection, full ROM. Absent: tenderness, CVA tenderness (R), CVA tenderness (L) Neurological exam: Present: alert, oriented X3 Psychiatric exam: Present: normal affect, normal mood Skin exam: Present: warm, dry, intact, normal color Course Vital Signs 10/09/20 10/09/20 00:46 02:45 Temperature 97.5 F L Pulse Rate 68 72 Respiratory 16 16 Rate Blood Pressure 110/71 170/74 O2 Sat by Pulse 99 97 Oximetry Medical Decision Making - Medical Decision Making 74-year-old male presents to the emergency department with a chief complaint of back pain. On physical examination, patient does appear to be slightly intoxicated. I can smell the alcohol. CBC remarkable. CMP reveals elevated BUN/creatinine, however this appears to be his baseline. Blood alcohol is 0.200. Patient's behavior is likely explained by his alcohol intoxication. They're advised to follow with the primary care physician. I advised him to start draining. Strict return parameters were thoroughly discussed the patient is an attending ago. His is also present in the room. Case discussed with - Lab Data Result diagrams: 10/09/20 01:22 10/09/20 01:22 Lab Results 10/09/20 10/09/20 Range/Units 01:22 01:22 WBC 6.8 (3.8-10.6) k/uL RBC 3.91 L (4.30-5.90) m/uL Hgb 13.1 (13.0-17.5) gm/dL Hct 38.8 L (39.0-53.0) % MCV 99.3 (80.0-100.0) fL MCH 33.5 (25.0-35.0) pg MCHC 33.7 (31.0-37.0) g/dL RDW 13.9 (11.5-15.5) % Plt Count 198 (150-450) k/uL MPV 6.8 Neutrophils % 61 % Lymphocytes % 25 % Monocytes % 6 % Eosinophils % 4 % Basophils % 1 % Neutrophils # 4.2 (1.3-7.7) k/uL Lymphocytes # 1.7 (1.0-4.8) k/uL Monocytes # 0.4 (0-1.0) k/uL Eosinophils # 0.3 (0-0.7) k/uL Basophils # 0.1 (0-0.2) k/uL Sodium 141 (137-145) mmol/L Potassium 3.8 (3.5-5.1) mmol/L Chloride 111 H (98-107) mmol/L Carbon Dioxide 17 L (22-30) mmol/L Anion Gap 13 mmol/L BUN 29 H (9-20) mg/dL Creatinine 1.33 H (0.66-1.25) mg/dL Est GFR (CKD-EPI)AfAm 61 (>60 ml/min/1.73 sqM) Est GFR (CKD-EPI)NonAf 53 (>60 ml/min/1.73 sqM) Glucose 100 H (74-99) mg/dL Calcium 8.5 (8.4-10.2) mg/dL Total Bilirubin 0.5 (0.2-1.3) mg/dL AST 57 (17-59) U/L ALT 41 (4-49) U/L Alkaline Phosphatase 88 (38-126) U/L Total Protein 6.8 (6.3-8.2) g/dL Albumin 3.6 (3.5-5.0) g/dL Serum Alcohol 208 H* mg/dL - EKG Data EKG Comments: Sinus rhythm with first-degree AV block Ventricular rate 66, ME 212, QRS 90, QTC 461. Disposition Clinical Impression: Alcohol intoxication Disposition: HOME SELF-CARE Condition: Stable Instructions (If sedation given, give patient instructions): Alcohol Intoxication (ED) Additional Instructions: Please return to the Emergency Department if symptoms worsen or any other concerns. Is patient prescribed a controlled substance at d/c from ED?: No Referrals: Bridger López DO [Primary Care Provider] - 1-2 days Time of Disposition: 02:36
[2020-10-09] MEDS ORDERED: SODIUM CHLORIDE 0.9% 1,000 ML IV STA (01:05)
[2020-10-09 01:37] LABS: Basophils # (A) 0.1 k/uL (0-0.2); Basophils % (A) 1 %; Eosinophils # (A) 0.3 k/uL (0-0.7); Eosinophils % (A) 4 %; HCT 38.8 % (39.0-53.0); HGB 13.1 gm/dL (13.0-17.5); Lymphocytes # (A) 1.7 k/uL (1.0-4.8); Lymphocytes % (A) 25 %; MCH 33.5 pg (25.0-35.0); MCHC 33.7 g/dL (31.0-37.0); MCV 99.3 fL (80.0-100.0); Mean Platelet Volume 6.8; Monocytes # (A) 0.4 k/uL (0-1.0); Monocytes % (A) 6 %; Neutrophils # (A) 4.2 k/uL (1.3-7.7); Neutrophils % (A) 61 %; Platelet Count 198 k/uL (150-450); RBC 3.91 m/uL (4.30-5.90); RDW 13.9 % (11.5-15.5); WBC 6.8 k/uL (3.8-10.6)
[2020-10-09 01:49] LABS: Albumin 3.6 g/dL (3.5-5.0); Calcium 8.5 mg/dL (8.4-10.2); Potassium 3.8 mmol/L (3.5-5.1); Total Bilirubin 0.5 mg/dL (0.2-1.3); Total Protein 6.8 g/dL (6.3-8.2)
[2020-10-09 02:47] VITALS: BP 170/74; PULSE 72
== END 2020-10-09 02:47 | disposition home or self-care (01) ==
LOC: EC 00:38
DX: F10.129 Alcohol abuse with intoxication, unspecified (principal); M54.9 Dorsalgia, unspecified; I25.10 Atherosclerotic heart disease of native coronary artery without angina pectoris; I25.2 Old myocardial infarction; F17.200 Nicotine dependence, unspecified, uncomplicated; Z79.82 Long term (current) use of aspirin; Y90.7 Blood alcohol level of 200-239 mg/100 ml
CPT/HCPCS: 80053; 80320; 85025; 93005; 99284

== ENCOUNTER → 2020-12-21 | Outpatient (CLI) | payer OTHER ==
--- NOTE | 2020-12-22 07:58 | US ---
EXAMINATION TYPE: US kidneys/renal and bladder DATE OF EXAM: 12/21/2020 COMPARISON: CT, US CLINICAL HISTORY: C67.9 Neoplasm of bladder. Neoplasm of bladder. Hx bladder cancer. Patient had proc edure for bladder neoplasm. EXAM MEASUREMENTS: Right Kidney: 11.3 x 4.9 x 4.4 cm Left Kidney: 10.8 x 4.5 x 4.9 cm Right Kidney: Possible minimally dilated collecting system-anechoic appearance. Left Kidney: Possible minimally dilated collecting system-anechoic appearance. Bladder: Anechoic. Bilateral Jets seen: Yes IMPRESSION: Mild fullness of the renal collecting system.
== END | disposition home or self-care (01) ==
LOC: RADUSWWP 15:34
PROVIDERS: ATTEND Urology
DX: C67.9 Malignant neoplasm of bladder, unspecified (principal)
CPT/HCPCS: 76770

== ENCOUNTER → 2021-03-02 | Outpatient (CLI) | payer OTHER ==
[2021-03-02 17:31] LABS: ALT 31 U/L (10-49); AST 29 U/L (14-35); African American GFR (CKD) 48.5 (60.0-200.0); Albumin 4.2 g/dL (3.8-4.9); Alkaline Phosphatase 63 U/L (41-126); BUN/Creat Ratio 17.81 Ratio (12.00-20.00); Blood Urea Nitrogen 28.5 mg/dL (9.0-27.0); Calcium 9.1 mg/dL (8.7-10.3); Carbon Dioxide 20.4 mmol/L (21.6-31.8); Chloride 106 mmol/L (96-109); Chol/HDL Ratio 2.54 Ratio; Globulin 2.8 g/dL (1.6-3.3); Glucose 87 mg/dL (70-110); LDL Cholesterol,Calculated 34.5 mg/dL (0.0-131.0); Non-African American GFR(CKD) 41.8 (60.0-200.0); Potassium 4.9 mmol/L (3.5-5.5); Sodium 139 mmol/L (135-145)
== END | disposition home or self-care (01) ==
LOC: LABWHC1 08:15
PROVIDERS: ATTEND Internal Medicine Interventional Cardiology
DX: E78.2 Mixed hyperlipidemia (principal)
CPT/HCPCS: 36415; 80053; 80061

== ENCOUNTER 2021-03-26 02:07 | Emergency (ER) | payer MEDICARE, OTHER ==
[2021-03-26 02:18] VITALS: RESP 18; TEMP 97.9
[2021-03-26] MEDS ORDERED: MORPHINE SULFATE 4 MG/ML SYRINGE IV STA (02:47)
[2021-03-26] MEDS ORDERED: MAG HYDROX/AL HYDROX/SIMETH 30 ML CUP PO STA (03:09)
--- NOTE | 2021-03-26 03:29 | XR ---
EXAMINATION TYPE: XR shoulder limited RT DATE OF EXAM: 03/26/2021 COMPARISON: NONE HISTORY: Shoulder pain TECHNIQUE: 2 views FINDINGS: There is no evidence of a fracture. There is some malalignment of the AC joint suggestive o f old ligamentous tear. Humeral head appears intact. There is no dislocation. Scapula appears intact. IMPRESSION: No acute abnormality of the right shoulder.
[2021-03-26] MEDS ORDERED: traMADol 50 MG STARTER PACK 3 TAB BTL PO STA (03:41)
--- NOTE | 2021-03-26 03:41 | ED ---
Upper Extremity HPI - General Chief Complaint: Extremity Injury, Upper Stated Complaint: Shoulder Injury Time Seen by Provider: 03/26/21 02:16 Source: patient, EMS Mode of arrival: EMS Limitations: no limitations - History of Present Illness Complaint: Injury to:: right, shoulder Onset/Timin -: hour(s) Other Extremity Injury: Shoulder: Right Other Injuries: none Handedness: right Place: home Improves With: immobilization Worsens With: movement of extremity Context: fall Associated Symptoms: denies other symptoms Treatments Prior to Arrival: other - Related Data Home Medications Medication Instructions Recorded Confirmed Atorvastatin [Lipitor] 20 mg PO DAILY 11/07/19 06/15/20 Metoprolol Tartrate [Lopressor] 12.5 mg PO BID 11/07/19 06/15/20 hydrALAZINE HCL [Apresoline] 50 mg PO BID-W/MEALS 11/07/19 06/15/20 Cyanocobalamin (Vitamin B-12) 1,000 mcg PO DAILY 06/15/20 06/15/20 [Vitamin B-12] Losartan Potassium [Cozaar] 100 mg PO DAILY 06/15/20 06/15/20 Multivitamins, Thera [Multivitamin 1 tab PO DAILY 06/15/20 06/15/20 (formulary)] Previous Rx's Medication Instructions Recorded Aspirin EC [Ecotrin Low Dose] 81 mg PO DAILY #30 tablet. 12/24/15 Ibuprofen 600 mg PO Q8H PRN #30 tab 06/19/20 HYDROcodone/APAP 5-325MG [Clover 1 tab PO Q4HR PRN 3 Days #18 tab 03/26/21 5-325] Allergies Allergy/AdvReac Type Severity Reaction Status Date / Time Iodine and Iodide Containing Allergy Anaphylaxis Verified 06/15/20 11:29 Produc shellfish derived Allergy Anaphylaxis Verified 06/15/20 11:28 Review of Systems ROS Statement: Those systems with pertinent positive or pertinent negative responses have been documented in the HPI. ROS Other: All systems not noted in ROS Statement are negative. Constitutional: Denies: fever, weakness Respiratory: Denies: cough, dyspnea Cardiovascular: Denies: chest pain, syncope Gastrointestinal: Denies: abdominal pain, vomiting Musculoskeletal: Reports: as per HPI, arthralgia Skin: Denies: lesions Neurological: Denies: weakness, numbness, paresthesias Past Medical History Past Medical History: Coronary Artery Disease (CAD), Myocardial Infarction ([place]) Additional Past Medical History / Comment(s): cervical pinched nerve with cervical pain that travels into bilateral arms at times, R ankle badly fractured and still has problems with it, sinus infections in past. Urinary retention. Last Myocardial Infarction Date:: 2015 History of Any Multi-Drug Resistant Organisms: None Reported Past Surgical History: Heart Catheterization With Stent Past Anesthesia/Blood Transfusion Reactions: Unable to Obtain Additional Past Anesthesia/Blood Transfusion Reaction / Comment(s): Pt has never had anesthesia or received blood. Date of Last Stent Placement:: 2015 Past Psychological History: No Psychological Hx Reported Smoking Status: Light tobacco smoker Past Alcohol Use History: Occasional Past Drug Use History: None Reported - Past Family History Mother Family Medical History: No Reported History Additional Family Medical History / Comment(s): Mother is 96 yrs old and healthy. She lives alone and drives a car. Father History Unknown: Yes General Exam Limitations: no limitations General appearance: alert, in no apparent distress Head exam: Present: atraumatic, normocephalic Eye exam: Present: normal appearance Neck exam: Present: normal inspection, full ROM. Absent: tenderness Respiratory exam: Present: normal lung sounds bilaterally. Absent: respiratory distress, wheezes, rales, rhonchi, stridor Cardiovascular Exam: Present: regular rate, normal rhythm, normal heart sounds. Absent: systolic murmur, diastolic murmur, rubs, gallop GI/Abdominal exam: Present: soft. Absent: distended, tenderness, guarding, rebound, rigid, mass Extremities exam: Present: full ROM, tenderness (At right AC joint), normal capillary refill. Absent: joint swelling Back exam: Present: normal inspection. Absent: paraspinal tenderness, vertebral tenderness Neurological exam: Present: alert. Absent: motor sensory deficit Skin exam: Present: warm, dry, intact, normal color. Absent: rash Course Vital Signs 03/26/21 03/26/21 02:12 02:17 Temperature 97.9 F Pulse Rate 74 86 Respiratory 18 18 Rate Blood Pressure 102/82 O2 Sat by Pulse 98 97 Oximetry Disposition Clinical Impression: AC separation Disposition: HOME SELF-CARE Condition: Good Instructions (If sedation given, give patient instructions): Shoulder Pain (ED), Early Postoperative or Post Injury Shoulder Exercises (ED) Prescriptions: HYDROcodone/APAP 5-325MG [Clover 5-325] 1 tab PO Q4HR PRN 3 Days #18 tab PRN Reason: Pain Is patient prescribed a controlled substance at d/c from ED?: Yes When asked, does pt state using other controlled substances?: No If prescribed controlled substance>3 days was MAPS reviewed?: Prescribed <3 Days If opioid is for acute pain is fill amount 7 days or less?: Yes If Rx opioid, was Start Talking consent form obtained?: Yes Referrals: Bridger López DO [Primary Care Provider] - 1-2 days Tyree Cabrera MD [STAFF PHYSICIAN] - 1-2 days
[2021-03-26 04:32] VITALS: BP 115/85; PULSE 80
== END 2021-03-26 04:32 | disposition home or self-care (01) ==
LOC: EC 02:07
DX: S43.101A Unspecified dislocation of right acromioclavicular joint, initial encounter (principal); I25.2 Old myocardial infarction; I25.10 Atherosclerotic heart disease of native coronary artery without angina pectoris; F17.200 Nicotine dependence, unspecified, uncomplicated; Z79.82 Long term (current) use of aspirin; Z79.1 Long term (current) use of non-steroidal anti-inflammatories (NSAID); Z79.899 Other long term (current) drug therapy; W19.XXXA Unspecified fall, initial encounter; Y92.009 Unspecified place in unspecified non-institutional (private) residence as the place of occurrence of the external cause
CPT/HCPCS: 73020; 99284; 96374; J2270